=== PATIENT | female | born 1935 | race Caucasian/White ===

== ENCOUNTER 2016-08-26 12:18 | Inpatient (IN) | payer OTHER ==
[~2016-08-26] VITALS: Ht 177.8 cm; Wt 79.4 kg
[2016-08-26] MEDS ORDERED: SOD CHLORIDE 0.9% 1,000 ML IV STA ×2 (12:22)
[2016-08-26] MEDS ORDERED: AZTREONAM 1 GM/NS (PMX) 50 ML IVPB STA (12:22)
[2016-08-26] MEDS ORDERED: VANCOMYCIN 1 GM (PMX) 250 ML IVPB STA (12:22)
[2016-08-26] MEDS ORDERED: morphine 4 MG/ML VIAL IV STA (12:23)
[2016-08-26] MEDS ORDERED: ONDANSETRON 4 MG INJ IV STA ×2 (12:23→16:59)
[2016-08-26 13:03] LABS: MEAN CORPUSCULAR HGB CONC 33.3 g/dl (32.0-37.0); MEAN CORPUSCULAR VOLUME 87.3 fl (82.0-101.0); MEAN PLATELET VOLUME 8.7 fl (7.4-10.4); PLATELET COUNT 370 10^3/UL (140-440); RED BLOOD COUNT 3.77 10^6/ul (4.20-5.40); RED CELL DISTRIBUTION WIDTH 16.6 % (11.5-14.5); UNCORRECTED WBC 27.2 10^3/ul (4.8-10.8); WHITE BLOOD COUNT 27.2 10^3/ul (4.8-10.8)
[2016-08-26 13:04] LABS: CONDITION 1; LH ANALYZER COMMENTS 1; SUSPECT 1
[2016-08-26 13:05] LABS: CHLORIDE 93 mmol/L (97-110); INR 1.14; PROTIME 14.6 Sec (12.2-14.2); PT RATIO 1.1
[2016-08-26 13:06] LABS: ALBUMIN 2.9 g/dl (3.3-4.9); PARTIAL THROMBOPLASTIN TIME 50.8 Sec (25.0-35.0); SODIUM 137 mmol/L (135-144)
[2016-08-26 13:07] LABS: POTASSIUM 3.2 mmol/L (3.5-5.1)
[2016-08-26 13:09] LABS: ALANINE AMINOTRANSFERASE 51 IU/L (13-69); ALKALINE PHOSPHATASE 169 IU/L (42-121); ANION GAP 18 (8-16); ASPARTATE AMINO TRANSFERASE 87 IU/L (15-46); BILIRUBIN,INDIRECT 0.1 mg/dl (0-1.1); BILIRUBIN,TOTAL 0.1 mg/dl (0.2-1.3); BLOOD UREA NITROGEN 59 mg/dl (7-20); CARBON DIOXIDE 29 mmol/L (21-31); CREATININE 2.47 mg/dl (0.44-1.00); GLUCOSE 132 mg/dl (70-220); TOTAL PROTEIN 6.5 g/dl (6.1-8.1)
[2016-08-26 13:10] LABS: CALCIUM 9.4 mg/dl (8.4-10.2)
[2016-08-26 13:23] LABS: TROPONIN-I < 0.012 ng/ml (0.00-0.12)
--- NOTE | 2016-08-26 13:39 | RADRPT ---
PROCEDURE: XR Chest. CLINICAL INDICATION: Sepsis TECHNIQUE: Chest AP portable COMPARISON: None available FINDINGS: The mediastinal structures are unremarkable. There is calcification of the thoracic aorta (consiste nt with atherosclerosis). The heart is normal in size and configuration. The pulmonary vascularity is normal. The lung ochoa are unremarkable. No consolidation is identified. The pleural spaces are unremarkable. The osseous structures are unremarkable. IMPRESSION: Calcification of the thoracic aorta (consistent with atherosclerosis). No evidence for active cardiopulmonary disease. RPTAT: HGDB .Mike Castellanos MD, Date Time Electronically viewed and signed by .Mike Castellanos MD, on 08/26/2016 13:39 .B/
[2016-08-26] MEDS ORDERED: SIMV40TA2 PO (13:45)
[2016-08-26] MEDS ORDERED: LISI20TA11 PO (13:45)
[2016-08-26] MEDS ORDERED: HYD25 PO (13:45)
[2016-08-26] MEDS ORDERED: FER325 PO (13:46)
[2016-08-26] MEDS ORDERED: CALC0.255 PO (13:47)
[2016-08-26] MEDS ORDERED: SODI325T PO (13:48)
[2016-08-26 14:12] LABS: LYMPHOCYTES # 0.5 10^3/ul (0.8-2.9); MONOCYTE # 1.1 10^3/ul (0.3-0.9); NEUTROPHIL # 24.2 10^3/ul (1.6-7.5)
--- NOTE | 2016-08-26 14:50 | RADRPT ---
PROCEDURE: CT Abdomen and Pelvis without contrast. CLINICAL INDICATION: Abdominal pain, fever TECHNIQUE: CT of the abdomen and pelvis was performed on a multi-detector scanner without IV contr ast. Coronal and sagittal images were reformatted from the axial data set. One or more of the foll owing dose reduction techniques were used: automated exposure control, adjustment of the mA and/or kV according to patient size, use of iterative reconstruction technique. CTDI = 14.36 mGy. DLP = 84 0.19 mGy-cm. COMPARISON: None. FINDINGS: CT abdomen: The lung bases are clear. The heart size is normal, without pericardial effusion. Gallbladder is s urgically absent. Liver, biliary tree, pancreas, spleen and adrenal glands are unremarkable. There is moderate to severe bilateral hydroureteronephrosis to the level of the urinary bladder. No urol ithiasis is identified. Bilateral benign renal cysts are noted. Small hiatal hernia is present. T he stomach is otherwise grossly unremarkable. The aorta is of normal caliber. Aortic vascular calcifications are present. There is no retroperit sandhu lymphadenopathy. The robert hepatis region is clear. 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 CT pelvis: No bowel obstruction, free intraperitoneal air or abscess is identified. Colonic diverticulosis is seen, without diverticulitis. No appendicitis or colitis is identified. The uterus is surgically a bsent. Urinary bladder is moderately enlarged, concerning for urinary retention. Areas of bony erosion and poorly defined loculated fluid are seen associated with the pubic symphysi s, concerning for possible osteomyelitis and abscess formation. There is degenerative spondylosis o f the spine. IMPRESSION: 1. Areas of bony erosion are noted involving the pubic symphysis, with adjacent poorly defined, que stionably loculated fluid collections - findings are suspicious for osteomyelitis and abscess format ion. Consider contrast enhanced MRI of the pelvis for further evaluation. 2. Urinary bladder is moderately distended, concerning for urinary retention. There is moderate to severe bilateral hydroureteronephrosis to the level of the urinary bladder, without evidence of obs tructive urinary calculus, possibly indicating urinary backflow secondary to bladder distension. 3. Colonic diverticulosis is seen without diverticulitis. 4. Gallbladder is surgically absent. 5. Aortoiliac atherosclerotic calcifications are present. 6. Small hiatal hernia is noted. RPTAT: HH .Rashard Mas MD, MD Date Time Electronically viewed and signed by .Rashard Mas MD, MD on 08/26/2016 14:49 .R/
[2016-08-26] MEDS ORDERED: ONDANSETRON 4 MG INJ IV PRN ×2 (15:30→19:00)
[2016-08-26] MEDS ORDERED: ACETAMINOPHEN 325 MG TAB PO PRN ×3 (15:30→21:30)
--- NOTE | 2016-08-26 18:19 | RADRPT ---
PROCEDURE: MRI of the pelvis. CLINICAL INDICATION: Fever. Evaluate for pelvic abscess. TECHNIQUE: Multiplanar T1 and T2-weighted MRI images of the pelvis. COMPARISON: CT abdomen pelvis 08/26/2016 FINDINGS: The study is limited due to lack of intravenous contrast. There is marked irregularity of the corti sophie margins of the pubic symphysis with oral and decreased signal on T1 within the inferior and supe rior pubic rami and corresponding T2 signal hyperintensity. Complex ill-defined fluid collection with a pubic symphysis extending posteriorly into the pelvis an d anteriorly into the subcutaneous soft tissues. The intrapelvic component measuring approximately 4 x 1.4 x 1 cm and transverse, AP, craniocaudal di mensions respectively. The extra pelvic component measures approximately 3.9 x 1.7 x 1 cm in AP, t ransverse, craniocaudal dimensions respectively. These findings are most compatible with osteomyelitis with abscess and surrounding phlegmon. Bilateral hip joint effusions right greater than left no other acute intrapelvic abnormality. IMPRESSION: 1. Complex fluid collection emanating from the pubic symphysis likely representing abscess with keo rounding phlegmon as described above. Study is limited due to lack of intravenous contrast and ill- defined appearance of the fluid collection. Ultrasound correlation may be considered to assess for d rainable collection. 2. Marked irregularity of the cortical margins of the pubic symphysis , inferior, and superior pubi c rami with signal characteristics highly suggestive of osteomyelitis. Three-phase bone scan may be considered for further characterization. RPTAT:AAJJ Physician Marcin Date Time Electronically viewed and signed by Physician Marcin on 08/26/2016 18:19 JOSE MARIA/
[2016-08-26 20:03] LABS: ADD UMIC YES; URINE BILIRUBIN (Dip) NEGATIVE (NEGATIVE); URINE BLOOD (Dip) 3+ (NEGATIVE); URINE COLOR YELLOW (YELLOW); URINE GLUCOSE (Dip) NEGATIVE (NEGATIVE); URINE KETONES (Dip) NEGATIVE (NEGATIVE); URINE LEUKOCYTE ESTERASE (Dip) 3+ (NEGATIVE); URINE NITRITE (Dip) NEGATIVE (NEGATIVE); URINE TOTAL PROTEIN (Dip) 2+ (NEGATIVE); URINE UROBILINOGEN (Dip) 0.2 E.U./dL (0.1-1.0)
[2016-08-26 20:16] LABS: SQUAMOUS EPITHELIAL CELL,UR FEW
[2016-08-26 20:19] LABS: BACTERIA,URINE FEW
--- NOTE | 2016-08-26 20:50 | CONS ---
Date/Time of Note Date/Time of Note DATE: 08/26/16 TIME: 20:22 Consultation Date/Type/Reason Admit Date/Time Date of Consultation: Aug 26, 2016 Reason for Consultation Internal medicine Referring Provider: MAT SHANE MD Hx of Present Illness This is a 81-year-old female, with history of valvular carcinoma status post radical valvulectomy in 1998, over the past 5 months at least the patient has been having multiple episodes of recurrent urinary tract infection, she was diagnosed with possible pelvic abscess/mass and pelvic osteomyelitis at [facility] back in May 2016, the patient has been seen by infectious disease at [facility], she has been on multiple rounds of antibiotics including 2 courses of 6 weeks treatment of antibiotics the latest one finished approximately 3 weeks ago and did include Daptomycin. The patient has had a repeat CAT scan of her pelvis approximately 2 weeks ago and followed up with infectious disease Dr. Murillo in [place], he reviewed the CAT scan and told the patient that she failed antibiotic treatment as she still has pelvic fluid collection and signs of osteomyelitis, he requested for the patient to go [place] [facility] and be evaluated by surgery as she likely needs debridement and Dr Kenny from [facility] already evaluated the patient and recommended for her to go to a tertiary center for the procedure. The patient had a referral authorized through [facility] today However she came to the emergency department here with reported fever to 104 this morning at home, chills, episodes of nausea and vomiting 4 today, pelvic pain and urinary incontinence. Her white blood cell count is up to 27,000. I had a discussion with Dr. Karen nieves who has taken care of her at [facility] in the past, apparently she was admitted there in May with bilateral hydronephrosis requiring placement of a Agrawal catheter and the recommendation was for her to have a Agrawal catheter at all times. She was then also admitted with polymicrobial urinary tract infection that responded to Levaquin that time however she was found again to have a pelvic mass or pelvic abscess with signs of pelvic osteomyelitis that they were hoping IV antibiotics will take care of but unfortunately this has not been the case and per her infectious disease doctor Dr. Murillo from [place] the next step is a referral to [facility] for likely need for surgical debridement. I have discussed the case with Dr. Monson and from [facility] and at this point we are attempting to transfer the patient to [facility], if we cannot transfer to [facility] she will be admitted to [facility] temporarily. She was given a dose of aztreonam and I will add a dose of Levaquin, Agrawal catheter was placed, blood cultures UA urine cultures are sent. She is hemodynamically stable and may be admitted to a medical surgical bed or telemetry bed depending on availability and clinical status She had a CAT scan of the abdomen and pelvis and MRI pelvis both without contrast showing signs of pelvic osteomyelitis and fluid collection in the pelvic area consistent with phlegmon and/or abscess Review of system as per HPI, patient denies any chest pain or shortness of breath. He denies any neurological deficit, Past Medical History Hypertension History of valvular carcinoma status post radical valvulectomy and radiation therapy in 1998 Recurrent cystitis and urinary tract infection, latest episode in June 2016 with findings of pelvic abscess and pelvic osteomyelitis status post 6 weeks treatment with antibiotic regimen including daptomycin which was finished approximately 3 weeks ago Chronic kidney disease Social History Smoking Status: Never smoker Exam/Review of Systems Vital Signs Vitals Vital Signs Date Time Temp Pulse Resp B/P Pulse Ox O2 Delivery O2 Flow Rate FiO2 08/26/16 17:37 99.3 45 18 149/61 98 Room Air Results Result Diagram: 08/26/16 1230 08/26/16 1230 Results 24 hrs Laboratory Tests Test 08/26/16 12:30 08/26/16 19:29 Activated Partial Thromboplast Time 50.8 H Alanine Aminotransferase (ALT/SGPT) 51 Albumin 2.9 L Albumin/Globulin Ratio 0.80 Alkaline Phosphatase 169 H Anion Gap 18 H Aspartate Amino Transf (AST/SGOT) 87 H Band Neutrophils % 5.0 Basophils # Basophils % Blood Morphology Comment Blood Urea Nitrogen 59 H Calcium Level 9.4 Carbon Dioxide Level 29 Chloride Level 93 L Creatinine 2.47 H Differential Comment MANUAL DIFF Direct Bilirubin 0.00 Eosinophils # Eosinophils % Globulin 3.60 H Glucose Level 132 Hematocrit 33.0 L Hemoglobin 11.0 L INR International Normalized Ratio 1.14 Indirect Bilirubin 0.1 Lactic Acid Level 1.3 Lymphocytes # 0.5 L Lymphocytes % 2.0 L Mean Corpuscular Hemoglobin 29.0 Mean Corpuscular Hemoglobin Concent 33.3 Mean Corpuscular Volume 87.3 Mean Platelet Volume 8.7 Monocytes # 1.1 H Monocytes % 4.0 Neutrophils # 24.2 H Neutrophils % 89.0 H Nucleated Red Blood Cells # Nucleated Red Blood Cells % Platelet Count 370 Potassium Level 3.2 L Prothrombin Time 14.6 H Prothrombin Time Ratio 1.1 Red Blood Count 3.77 L Red Cell Distribution Width 16.6 H Sodium Level 137 Total Bilirubin 0.1 L Total Protein 6.5 Troponin I < 0.012 White Blood Count 27.2 H Urine Bacteria FEW Urine Bilirubin NEGATIVE Urine Clarity CLOUDY Urine Color YELLOW Urine Glucose NEGATIVE Urine Hemoglobin 3+ H Urine Ketones NEGATIVE Urine Leukocyte Esterase 3+ H Urine Microscopic RBC 10-25 Urine Microscopic WBC >200 Urine Nitrite NEGATIVE Urine Specific [place] 1.015 Urine Squamous Epithelial Cells FEW Urine Total Protein 2+ H Urine Urobilinogen 0.2 E.U./dL Urine pH 6.5 Medications Medications Current Medications Calcitriol (Rocaltrol) 0.25 mcg DAILY PO ; Start 08/27/16 at 09:00; Status UNV Ferrous Sulfate (Ferrous Sulfate (Ec)) 325 mg DAILY PO ; Start 08/27/16 at 09:00 Sodium Bicarbonate (Sodium Bicarbonate Tab) 325 mg BID PO ; Start 08/26/16 at 21: 00; Status UNV Atorvastatin Calcium (Lipitor) 20 mg QHS PO ; Start 08/26/16 at 21:00 DAYANNA DEVLIN Aug 26, 2016 20:50
--- NOTE | 2016-08-26 20:50 | ERA ---
ER Documentation Chief Complaint Date/Time DATE: 08/26/16 TIME: 20:46 Chief Complaint BROUGHT IN VIA EMS DUE TO FLU LIKE SYMPTOMS AND FEVER HPI Patient is a 81-year-old female with hypertension chronic UTI who presents with UTI. The patient was brought in by ambulance. She has had 3 episodes of vomiting. She had fever of 104. She called her primary doctor who told her to go to the ER. She has had a history of UTI that has been resistant and she saw an infectious disease doctor this week. She had a CT scan which showed an infection in the pelvic bone and there is concern for osteomyelitis as well. The patient's primary doctor is Dr. Moeller. ROS All systems reviewed and are negative except as per history of present illness. Medications Home Meds Reported Medications Sodium Bicarbonate* (Sodium Bicarbonate*) 325 Mg Tablet, 325 MG PO BID, TAB 08/26/16 Calcitriol* (Rocaltrol*) 0.25 Mcg Capsule, 0.25 MCG PO DAILY, CAP 08/26/16 Ferrous Sulfate* (Ferrous Sulfate*) 325 Mg Tabec, 325 MG PO DAILY, TAB 08/26/16 Simvastatin* (Zocor*) 40 Mg Tablet, 40 MG PO QHS, #30 TAB 08/26/16 Hydrochlorothiazide* (Hydrochlorothiazide*) 25 Mg Tab, 25 MG PO DAILY, #30 TAB 08/26/16 Lisinopril* (Lisinopril*) 20 Mg Tablet, 20 MG PO DAILY, #30 TAB 08/26/16 Allergies Allergies: Coded Allergies: Penicillins (Verified Allergy, Unknown, 08/26/16) sulfamethoxazole (Verified Allergy, Unknown, 08/26/16) trimethoprim (Verified Allergy, Unknown, 08/26/16) PMhx/Soc Medical and Surgical Hx: pt denies Surgical Hx History of Surgery: No Anesthesia Reaction: No Hx Neurological Disorder: No Hx Respiratory Disorders: No Hx Cardiac Disorders: Yes (htn) Hx Psychiatric Problems: No Hx Miscellaneous Medical Probl: Yes (osteomyletis, recurrent uti) Hx Alcohol Use: No Hx Substance Use: No Hx Tobacco Use: No Smoking Status: Never smoker FmHx Family History: No diabetes Physical Exam Vitals Vital Signs Date Time Temp Pulse Resp B/P Pulse Ox O2 Delivery O2 Flow Rate FiO2 08/26/16 17:37 99.3 45 18 149/61 98 Room Air 08/26/16 14:25 98.7 73 18 115/54 99 Room Air 08/26/16 12:28 99.1 53 18 112/53 96 Physical Exam Const: Mild distress Head: Atraumatic Eyes: Normal Conjunctiva ENT: Normal External Ears, Nose and Mouth. Neck: Full range of motion..~ No meningismus. Resp: Clear to auscultation bilaterally Cardio: Regular rate and rhythm, no murmurs Abd: Soft, lower abdominal pain without rebound or guarding Skin: Pale Back: No midline or flank tenderness Ext: No cyanosis, or edema Neur: Awake and alert Psych: Normal Mood and Affect Result Diagram: 08/26/16 1230 08/26/16 1230 Results 24 hrs Laboratory Tests Test 08/26/16 12:30 08/26/16 19:29 Activated Partial Thromboplast Time 50.8Sec Alanine Aminotransferase (ALT/SGPT) 51IU/L Albumin 2.9g/dl Albumin/Globulin Ratio 0.80 Alkaline Phosphatase 169IU/L Anion Gap 18 Aspartate Amino Transf (AST/SGOT) 87IU/L Band Neutrophils % 5.0% Basophils # 10^3/ul Basophils % % Blood Morphology Comment Blood Urea Nitrogen 59mg/dl Calcium Level 9.4mg/dl Carbon Dioxide Level 29mmol/L Chloride Level 93mmol/L Creatinine 2.47mg/dl Differential Comment MANUAL DIFF Direct Bilirubin 0.00mg/dl Eosinophils # 10^3/ul Eosinophils % % Globulin 3.60g/dl Glucose Level 132mg/dl Hematocrit 33.0% Hemoglobin 11.0g/dl INR International Normalized Ratio 1.14 Indirect Bilirubin 0.1mg/dl Lactic Acid Level 1.3mmol/L Lymphocytes # 0.510^3/ul Lymphocytes % 2.0% Mean Corpuscular Hemoglobin 29.0pg Mean Corpuscular Hemoglobin Concent 33.3g/dl Mean Corpuscular Volume 87.3fl Mean Platelet Volume 8.7fl Monocytes # 1.110^3/ul Monocytes % 4.0% Neutrophils # 24.210^3/ul Neutrophils % 89.0% Nucleated Red Blood Cells # 10^3/ul Nucleated Red Blood Cells % /100WBC Platelet Count 04511^3/UL Potassium Level 3.2mmol/L Prothrombin Time 14.6Sec Prothrombin Time Ratio 1.1 Red Blood Count 3.7710^6/ul Red Cell Distribution Width 16.6% Sodium Level 137mmol/L Total Bilirubin 0.1mg/dl Total Protein 6.5g/dl Troponin I < 0.012ng/ml White Blood Count 27.210^3/ul Urine Bacteria FEW Urine Bilirubin NEGATIVE Urine Clarity CLOUDY Urine Color YELLOW Urine Glucose NEGATIVE% Urine Hemoglobin 3+ Urine Ketones NEGATIVE Urine Leukocyte Esterase 3+ Urine Microscopic RBC 10-25/HPF Urine Microscopic WBC >200/HPF Urine Nitrite NEGATIVE Urine Specific [place] 1.015 Urine Squamous Epithelial Cells FEW Urine Total Protein 2+ Urine Urobilinogen 0.2 E.U./dL Urine pH 6.5 Current Medications Medications (Trade) Dose Ordered Sig/Dani Route PRN Reason Start Time Stop Time Status Last Admin Dose Admin Vancomycin HCl 250 ml @ 125 mls/hr ONCE STAT IVPB 08/26/16 12:22 08/26/16 14:21 DC 08/26/16 13:27 Aztreonam 50 ml @ 100 mls/hr ONCE STAT IVPB 08/26/16 12:22 08/26/16 12:51 DC 08/26/16 13:01 Sodium Chloride 1,000 ml @ 1,000 mls/hr Q1H STAT IV 08/26/16 12:22 08/26/16 13:21 DC 08/26/16 12:52 Sodium Chloride (NS) 1,000 ml @ 1,000 mls/hr Q1H STAT IV 08/26/16 12:22 08/26/16 13:21 DC 08/26/16 12:52 Morphine Sulfate (morphine) 4 mg ONCE STAT IV 08/26/16 12:23 08/26/16 12:25 DC 08/26/16 12:53 Ondansetron HCl (Zofran Inj) 4 mg ONCE STAT IV 08/26/16 12:23 08/26/16 12:25 DC 08/26/16 12:52 Ondansetron HCl (Zofran Inj) 4 mg BRIDGE ORDER PRN IV NAUSEA AND/OR VOMITING 08/26/16 15:30 08/27/16 15:29 Acetaminophen (Tylenol Tab) 650 mg ER BRIDGE PRN PO MILD PAIN/FEVER 08/26/16 15:30 08/27/16 15:29 Calcitriol (Rocaltrol) 0.25 mcg DAILY PO 08/27/16 09:00 UNV Ferrous Sulfate (Ferrous Sulfate (Ec)) 325 mg DAILY PO 08/27/16 09:00 Sodium Bicarbonate (Sodium Bicarbonate Tab) 325 mg BID PO 08/26/16 21:00 UNV Atorvastatin Calcium (Lipitor) 20 mg QHS PO 08/26/16 21:00 Ondansetron HCl (Zofran Inj) 4 mg ONCE STAT IV 08/26/16 16:59 08/26/16 17:00 DC 08/26/16 17:47 Ondansetron HCl (Zofran Inj) 4 mg BRIDGE ORDER PRN IV NAUSEA AND/OR VOMITING 08/26/16 19:00 08/27/16 18:59 Acetaminophen 650 mg 650 mg ER BRIDGE PRN PO MILD PAIN/FEVER 08/26/16 19:00 08/27/16 18:59 Levofloxacin/ Dextrose (Levaquin 750 Mg/ D5W 150 ml (Pmx)) 150 ml @ 100 mls/hr ONCE ONCE IVPB 08/26/16 20:30 08/26/16 21:59 UNV Procedures/MDM CT scan shows possible osteomyelitis of the pelvis per radiology. Chest x-ray shows no pneumonia per radiology. EKG read by me: Rate/Rhythm: Regular rate and rhythm at a rate of 79 Intervals: Normal Impression: No evidence of ischemia with PVCs Admit MDM: Patient's infectious symptoms have not stabilized and the patient is at risk of rapid decompensation. The patient will be admitted for careful hydration, antibiotic therapy, and infectious source control. Severe Sepsis criteria: Infectious source: Cystitis End organ damage indicated by: Creatinine greater than 2 Sepsis Management: Time of recognition of sepsis: 19:29 Within 3 hours of recognition: Blood cultures x 2 before broad-spectrum antibiotics: Yes 30 ml/kg NS bolus Completed Initial lactate 1.3 Repeat lactate pending Time of recognition of septic shock: No septic shock Septic Shock Assessment: Any lactic acid > 4.0 No Persistent hypotension (SBP < 90 or 40 mmHg drop, MAP < 65) despite 30 mL/kg IV fluid bolus No Volume Re-assessment for Septic Shock (post 30 ml/kg bolus): No septic shock at this time Persistent Hypotension Treatment: Comfort care No Central line Not Required Vasopressor started Not required I considered further perfusion assessment with CVP measurement, SCVO2, bedside ultrasound volume assessment, passive leg raise, trial of further fluid bolus. And proceeded with 30 ml/kg fluid bolus of NSS, broad spectrum antibiotics, and admission. Dr. Sanchez came to the bedside to see the patient. This patient is complicated given her pelvic osteomyelitis as well as cystitis and therefore may require transfer. Dr. Sanchez is trying to arrange transfer to [facility] at this time. If the patient is not accepted at [facility] the patient will be admitted to [facility] for further IV antibiotics. Accepting Care Team Current data and ongoing care discussed. Admitting Physician: Dr. Sanchez Import/Export Administrator(s): None Outstanding Data: Culture results and repeat lactic acid Critical Care: Critical care time 45 minutes excluding all billable procedures Emergent fluid management while maintaining close respiratory support. Provision of immediate and broad-spectrum antibiotic therapy. Simultaneous assessment for possible sources in order to direct targeted therapy. Consideration for invasive and chemical support to prevent cardiopulmonary collapse. Departure Diagnosis: Primary Impression: Severe sepsis Additional Impressions: Cystitis Osteomyelitis Qualified Code: M86.18 - Acute osteomyelitis of other site Leukocytosis Qualified Code: D72.829 - Leukocytosis, unspecified type Renal failure Anemia Qualified Code: D64.9 - Anemia, unspecified type Hypokalemia Condition: Serious MAT SHANE MD Aug 26, 2016 20:50
--- NOTE | 2016-08-26 20:58 | HP ---
Date/Time of Note Date/Time of Note DATE: 08/26/16 TIME: 20:50 Assessment/Plan VTE Prophylaxis VTE Prophylaxis Intervention: SCD's Lines/Catheters Urinary Cath still in place: Yes Reason Cath still needed: urinary retention, other (indicate) (Acute kidney injury) Assessment/Plan Assessment/Plan 81-year-old female with: 1. Cystitis, rule out bacteremia given the fact that the patient was admitted with chills, fever at home, significant leukocytosis. Blood cultures have been drawn and pending, UA is positive, urine culture is pending. Based on history of polymicrobial gram-negative radha infection previously at [facility], sensitive to Levaquin and the fact that the patient has penicillin allergy, she was given a dose of aztreonam and I will double cover her with Levaquin. 2. 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 Murillo. Therefore the question is if these findings are actually infectious versus signs of malignancy. Given her presentation today, there is great concern for possible underlying infection. Monitor white blood cell count and continue current antibiotics, depending on clinical course, she may need transfer to a tertiary level of care. If she does improve with treatment of UTI/cystitis then she may need some sort of biopsy versus surgical debridement sooner rather than later in order to get a final diagnosis and treatment plan regarding the pelvic findings. ESR pending 3. Hypertension, currently her blood pressure is stable and I will hold off of any antihypertensive unless absolutely needed due to the concerns for possible severe infection 4. Acute kidney injury with reported chronic kidney disease, signs of obstructive uropathy with bilateral hydronephrosis, Agrawal catheter has been placed to decompress the bladder, monitor renal function and she may need a repeat ultrasound of the pelvis or the kidneys to make sure that her hydronephrosis is resolved. Patient reports that she is followed by Dr. Kelly for nephrology, apparently at [facility] based on the records her renal function was normal in June 2016. Replete potassium Prophylaxis: SCDs for DVT prophylaxis, Pepcid for GI prophylaxis and probiotics Disposition: Admit to medical surgical bed and depending on clinical course she may need a transfer to tertiary level of care. HPI/ROS Admit Date/Time Admit Date/Time Hx of Present Illness This is a 81-year-old female, with history of valvular carcinoma status post radical valvulectomy in 1998, over the past 5 months at least the patient has been having multiple episodes of recurrent urinary tract infection, she was diagnosed with possible pelvic abscess/mass and pelvic osteomyelitis at [facility] back in May 2016, the patient has been seen by infectious disease at [facility], she has been on multiple rounds of antibiotics including 2 courses of 6 weeks treatment of antibiotics the latest one finished approximately 3 weeks ago and did include Daptomycin. The patient has had a repeat CAT scan of her pelvis approximately 2 weeks ago and followed up with infectious disease Dr. Murillo in [place], he reviewed the CAT scan and told the patient that she failed antibiotic treatment as she still has pelvic fluid collection and signs of osteomyelitis, he requested for the patient to go to [facility] and be evaluated by surgery as she likely needs debridement and Dr Kenny from [facility] already evaluated the patient and recommended for her to go to a tertiary center for the procedure. The patient had a referral authorized through [facility] today However she came to the emergency department here with reported fever to 104 this morning at home, chills, episodes of nausea and vomiting 4 today, pelvic pain and urinary incontinence. Her white blood cell count is up to 27,000. I had a discussion with Dr. Karen nieves who has taken care of her at [facility] in [place] in the past, apparently she was admitted there in May with bilateral hydronephrosis requiring placement of a Agrawal catheter and the recommendation was for her to have a Agrawal catheter at all times. She was then also admitted with polymicrobial urinary tract infection that responded to Levaquin that time however she was found again to have a pelvic mass or pelvic abscess with signs of pelvic osteomyelitis that they were hoping IV antibiotics will take care of but unfortunately this has not been the case and per her infectious disease doctor Dr. Murillo from [place] the next step is a referral to [facility] for likely need for surgical debridement. I have discussed the case with Dr. Monson and from [place] and at this point we are attempting to transfer the patient to [facility], if we cannot transfer to [facility] she will be admitted to [facility] temporarily. She was given a dose of aztreonam and I will add a dose of Levaquin, Agrawal catheter was placed, blood cultures UA urine cultures are sent. She is hemodynamically stable and being admitted to a medical surgical bed She had a CAT scan of the abdomen and pelvis and MRI pelvis both without contrast showing signs of pelvic osteomyelitis and fluid collection in the pelvic area consistent with phlegmon and/or abscess ROS Review of system as per HPI, Patient denies any chest pain or shortness of breath. 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 Recurrent cystitis and urinary tract infection, latest episode in June 2016 with findings of pelvic abscess and pelvic osteomyelitis status post 6 weeks treatment with antibiotic regimen including daptomycin which was finished approximately 3 weeks ago Chronic kidney disease and chronic urinary incontinence may be Agrawal dependent Past Surgical History Status post cholecystectomy 1974 Status post hysterectomy 1975 Status post radical vulvectomy in 1998 Social History Alcohol Use: none Smoking Status: Never smoker Exam/Review of Systems Vital Signs Vitals Vital Signs Date Time Temp Pulse Resp B/P Pulse Ox O2 Delivery O2 Flow Rate FiO2 08/26/16 17:37 99.3 45 18 149/61 98 Room Air Exam Constitutional: alert, frail, oriented, other (Currently having chills) Eyes: EOMI, nl conjunctiva ENMT: mucosa pink and moist, nl external ears & nose, nl lips & teeth, nl nasal mucosa & septum Neck: non-tender, supple Respiratory: clear to auscultation, normal air movement Cardiovascular: nl pulses, regular rate and rhythm Gastrointestinal: soft Genitourinary - Male: other Genitourinary - Female: other (The patient does have hardening of her subcutaneous area in her lower pelvis and perineal area which is the area where she had radiation for her vulvular cancer) Extremities: normal pulses, other (No edema, clubbing or cyanosis) Neurological: [employer] II-XII intact, lethargic, nl mental status, nl speech, other (Generalized weakness) Additional Comments A pediatric size Agrawal catheter has been placed, urine analysis and urine cultures are pending Labs Result Diagram: 08/26/16 1230 08/26/16 1230 Medications Medications Current Medications Calcitriol (Rocaltrol) 0.25 mcg DAILY PO ; Start 08/27/16 at 09:00; Status UNV Ferrous Sulfate (Ferrous Sulfate (Ec)) 325 mg DAILY PO ; Start 08/27/16 at 09:00 Sodium Bicarbonate (Sodium Bicarbonate Tab) 325 mg BID PO ; Start 08/26/16 at 21: 00; Status UNV Atorvastatin Calcium (Lipitor) 20 mg QHS PO ; Start 08/26/16 at 21:00 Procedures Procedures PROCEDURE: XR Chest. CLINICAL INDICATION: Sepsis TECHNIQUE: Chest AP portable COMPARISON: None available FINDINGS: The mediastinal structures are unremarkable. There is calcification of the thoracic aorta (consistent with atherosclerosis). The heart is normal in size and configuration. The pulmonary vascularity is normal. The lung ochoa are unremarkable. No consolidation is identified. The pleural spaces are unremarkable. The osseous structures are unremarkable. IMPRESSION: Calcification of the thoracic aorta (consistent with atherosclerosis). No evidence for active cardiopulmonary disease. RPTAT: HGDB .Mike Castellanos MD, MD Date Time Electronically viewed and signed by .Mike Castellanos MD, MD on 08/26/2016 13:39 PROCEDURE: CT Abdomen and Pelvis without contrast. CLINICAL INDICATION: Abdominal pain, fever TECHNIQUE: CT of the abdomen and pelvis was performed on a multi-detector scanner without IV contrast. Coronal and sagittal images were reformatted from the axial data set. One or more of the following dose reduction techniques were used: automated exposure control, adjustment of the mA and/or kV according to patient size, use of iterative reconstruction technique. CTDI = 14.36 mGy. DLP = 840.19 mGy-cm. COMPARISON: None. FINDINGS: CT abdomen: The lung bases are clear. The heart size is normal, without pericardial effusion. Gallbladder is surgically absent. Liver, biliary tree, pancreas, spleen and adrenal glands are unremarkable. There is moderate to severe bilateral hydroureteronephrosis to the level of the urinary bladder. No urolithiasis is identified. Bilateral benign renal cysts are noted. Small hiatal hernia is present. The stomach is otherwise grossly unremarkable. The aorta is of normal caliber. Aortic vascular calcifications are present. There is no retroperitoneal lymphadenopathy. The robert hepatis region is clear. 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 CT pelvis: No bowel obstruction, free intraperitoneal air or abscess is identified. Colonic diverticulosis is seen, without diverticulitis. No appendicitis or colitis is identified. The uterus is surgically absent. Urinary bladder is moderately enlarged, concerning for urinary retention. Areas of bony erosion and poorly defined loculated fluid are seen associated with the pubic symphysis, concerning for possible osteomyelitis and abscess formation. There is degenerative spondylosis of the spine. IMPRESSION: 1. Areas of bony erosion are noted involving the pubic symphysis, with adjacent poorly defined, questionably loculated fluid collections - findings are suspicious for osteomyelitis and abscess formation. Consider contrast enhanced MRI of the pelvis for further evaluation. 2. Urinary bladder is moderately distended, concerning for urinary retention. There is moderate to severe bilateral hydroureteronephrosis to the level of the urinary bladder, without evidence of obstructive urinary calculus, possibly indicating urinary backflow secondary to bladder distension. 3. Colonic diverticulosis is seen without diverticulitis. 4. Gallbladder is surgically absent. 5. Aortoiliac atherosclerotic calcifications are present. 6. Small hiatal hernia is noted. RPTAT: HH .Rashard Mas MD, MD Date Time Electronically viewed and signed by .Rashard Mas MD, MD on 08/26/2016 14: 49 .R/ CC: MAT SHANE MD PROCEDURE: MRI of the pelvis. CLINICAL INDICATION: Fever. Evaluate for pelvic abscess. TECHNIQUE: Multiplanar T1 and T2-weighted MRI images of the pelvis. COMPARISON: CT abdomen pelvis 08/26/2016 FINDINGS: The study is limited due to lack of intravenous contrast. There is marked irregularity of the cortical margins of the pubic symphysis with oral and decreased signal on T1 within the inferior and superior pubic rami and corresponding T2 signal hyperintensity. Complex ill-defined fluid collection with a pubic symphysis extending posteriorly into the pelvis and anteriorly into the subcutaneous soft tissues. The intrapelvic component measuring approximately 4 x 1.4 x 1 cm and transverse , AP, craniocaudal dimensions respectively. The extra pelvic component measures approximately 3.9 x 1.7 x 1 cm in AP, transverse, craniocaudal dimensions respectively. These findings are most compatible with osteomyelitis with abscess and surrounding phlegmon. Bilateral hip joint effusions right greater than left no other acute intrapelvic abnormality. IMPRESSION: 1. Complex fluid collection emanating from the pubic symphysis likely representing abscess with surrounding phlegmon as described above. Study is limited due to lack of intravenous contrast and ill-defined appearance of the fluid collection. Ultrasound correlation may be considered to assess for drainable collection. 2. Marked irregularity of the cortical margins of the pubic symphysis , inferior, and superior pubic rami with signal characteristics highly suggestive of osteomyelitis. Three-phase bone scan may be considered for further characterization. RPTAT:AAJJ Physician Marcin Date Time Electronically viewed and signed by Physician Marcin on 08/26/2016 18:19 JOSE MARIA/ CC: MAT SHANE MDNNILESH F Aug 26, 2016 20:58
[2016-08-26 21:30] VITALS: TEMP 100.3
[2016-08-26] MEDS ORDERED: DOCUSATE SODIUM 100 MG CAP PO PRN (21:30)
[2016-08-26] MEDS ORDERED: NACL 0.9% 3 ML SYG IV SCH (21:30)
[2016-08-26] MEDS ORDERED: MAGNESIUM HYDROXIDE 30ML CUP PO PRN (21:30)
[2016-08-26] MEDS ORDERED: BISACODYL 10 MG SUPP PR PRN (21:30)
[2016-08-26] MEDS ORDERED: HYDROCODONE/APAP (5/325) TAB PO PRN ×2 (21:30)
[2016-08-26] MEDS ORDERED: LEVOFLOXACIN 750MG/D5W (PMX) 150 ML IVPB ONE (22:00)
[2016-08-26 22:18] VITALS: BP 120/56; RESP 18
[2016-08-26 22:26] VITALS: Ht 177.8 cm; Wt 79.4 kg
[2016-08-26] MEDS: ATORVASTATIN 20 MG TAB PO SCH (23:06)
[2016-08-26] MEDS: SOD CHLORIDE 0.9% 1,000 ML IV SCH (23:07)
[2016-08-26] MEDS: NA BICARBONATE 650 MG TAB PO SCH (23:07)
[2016-08-27] MEDS: SOD CHLORIDE 0.9% 1,000 ML IV SCH ×3 (07:21→23:08)
[2016-08-27 07:40] VITALS: BP 130/55; RESP 18
[2016-08-27 08:25] LABS: ALBUMIN 2.5 g/dl (3.3-4.9)
[2016-08-27 08:26] LABS: POTASSIUM 3.1 mmol/L (3.5-5.1)
[2016-08-27 08:28] LABS: CREATININE 1.94 mg/dl (0.44-1.00)
[2016-08-27 08:29] LABS: ALBUMIN/GLOBULIN RATIO 0.8; CALCIUM 8.4 mg/dl (8.4-10.2); PHOSPHORUS 3.5 mg/dl (2.5-4.9); TOTAL PROTEIN 5.6 g/dl (6.1-8.1)
[2016-08-27 08:30] LABS: MAGNESIUM 1.3 mg/dl (1.7-2.5)
[2016-08-27] MEDS ORDERED: AZTREONAM 2 GM in SOD CHLORIDE 0.9% 100 ML IVPB ONE (09:00)
[2016-08-27] MEDS: ONDANSETRON 4 MG INJ IV PRN (09:33)
[2016-08-27] MEDS: FAMOTIDINE 20 MG TAB PO SCH (09:34)
[2016-08-27] MEDS: NA BICARBONATE 650 MG TAB PO SCH ×2 (09:34→20:18)
[2016-08-27] MEDS: CALCITRIOL 0.25 MCG CAP PO SCH (09:35)
[2016-08-27] MEDS: FERROUS SULFATE (EC) 325 MG TAB PO SCH (09:35)
[2016-08-27 10:27] LABS: HEMATOCRIT 27.5 % (37.0-47.0); HEMOGLOBIN 8.8 g/dl (12.0-16.0); MEAN CORPUSCULAR HEMOGLOBIN 29.2 pg (29.0-33.0); MEAN CORPUSCULAR VOLUME 91.4 fl (82.0-101.0); RED BLOOD COUNT 3.01 10^6/ul (4.20-5.40); WHITE BLOOD COUNT 23.4 10^3/ul (4.8-10.8)
[2016-08-27 10:28] LABS: BASOPHILS % 0.2 % (0.0-2.0); EOSINOPHILS # 0.1 10^3/ul (0.0-0.5); EOSINOPHILS % 0.2 % (0.0-7.0); LYMPHOCYTES # 0.6 10^3/ul (0.8-2.9); LYMPHOCYTES % 2.4 % (15.0-51.0); MEAN PLATELET VOLUME 10.9 fl (7.4-10.4); MONOCYTE # 1.2 10^3/ul (0.3-0.9); MONOCYTES % 5.3 % (0.0-11.0); NEUTROPHIL # 21.3 10^3/ul (1.6-7.5); NUCLEATED RED BLOOD CELLS% 0.1 /100WBC (0.0-0.0); PLATELET COUNT 306 10^3/UL (140-440); RED CELL DISTRIBUTION WIDTH 15.9 % (11.5-14.5)
--- NOTE | 2016-08-27 16:51 | PDOCDIS ---
Discharge Instructions DIAGNOSIS Discharge Diagnosis: Pelvic osteomyelitis, sepsis (GPC, GNR), pelvic abscess CONDITION Patient Condition: Serious HOME CARE INSTRUCTIONS: Diet Instructions: Special Diet: RENAL DIET ACTIVITY: Activity Restrictions: No Weight Bearing FOLLOW UP/APPOINTMENTS Appointments Patient accepted for transfer to [facility], by DARIN Farmer M.D. Aug 27, 2016 16:51
--- NOTE | 2016-08-27 16:54 | DS ---
Date/Time of Note Date/Time of Note DATE: 08/27/16 TIME: 16:53 Discharge Summary Admission/Discharge Info Admit Date/Time Aug 26, 2016 at 18:43 Discharge Date/Time Aug 27, 2016 Final Diagnosis Pelvic osteomyelitis, pelvic abscess, sepsis (GPC, GNR), renal insufficiency Patient Condition: Serious Consults None Procedures 1. Abd/pelvic CT 2. Pelvic MRI 3. Blood cultures Hx of Present Illness 81-year-old patient of Dr. Shaun Moeller with a history of vulval carcinoma status post radical vulvectomy in 1998. Over the past 5 months she has had multiple episodes of urinary tract infection and was diagnosed with possible pelvic abscess/mass and pelvic osteomyelitis at [facility] in May 2016. She was evaluated by Dr. Murillo, from the Infectious Disease Service at [facility], and has been treated with multiple rounds of antibiotics including two courses of treatment for six weeks, most recently concluding a course of daptomycin three weeks ago. CT of the pelvis 2 weeks ago, and Dr. Murillo recommended referral to [facility] for possible surgical debridement. She presented yesterday to the [facility] ER with fever to 104, chills, episodes of nausea and vomiting 4, pelvic pain and urinary incontinence. Hospital Course Her white blood cell count was 27,000, and preliminary blood culture results demonstrated Gram-positive cocci in clusters and Gram-negative rods. She has a penicillin allergy, and was started on aztreonam. In consultation with Dr. Kenya Jones at [facility], it was determined that [facility] did not have the level of surgical or interventional radiology care required to address her problems. She underwent CT scan of the abdomen and pelvis and MRI of the pelvis, both without contrast, showing signs of pelvic osteomyelitis and fluid collection in the pelvic area consistent with phlegmon and/or abscess. The patient still had considerable pelvic area pain today, but felt less ill since starting on intravenous antibiotics. She pointed to a suprapubic area above the inguinal ligaments bilaterally, with greater tenderness on the right. No appetite, but also no headache, dyspnea, or chest pain. Agrawal catheter in place. On physical exam, she had reassuringly normal cardiac, pulmonary and neurologic exams. Dry mouth. Normal pupils. No JVD. There was mild pretibial edema bilaterally. She had mild abdominal tenderness, without rebound or guarding. Blood tests today were improved with WBC 23k/ul, creatinine down to 1.94 (from 2.47). ESR was 130mm/hr, consistent with osteomyelitis and sepsis. Arrangements were made today for transfer to [facility]. I discussed the case with Dr. Karlos Winters, the accepting physician. She indicated that her discussions with several surgeons had brought into question whether surgical intervention was indicated. But I think that this patient would benefit from direct surgical consultation and evaluation for possible benefit of debridement vs. interventional radiology accessing the fluid collection in the pelvis for possible culture and improved antibiotic therapy. Home Meds Reported Medications Sodium Bicarbonate* (Sodium Bicarbonate*) 325 Mg Tablet, 325 MG PO BID, TAB 08/26/16 Calcitriol* (Rocaltrol*) 0.25 Mcg Capsule, 0.25 MCG PO DAILY, CAP 08/26/16 Ferrous Sulfate* (Ferrous Sulfate*) 325 Mg Tabec, 325 MG PO DAILY, TAB 08/26/16 Simvastatin* (Zocor*) 40 Mg Tablet, 40 MG PO QHS, #30 TAB 08/26/16 Hydrochlorothiazide* (Hydrochlorothiazide*) 25 Mg Tab, 25 MG PO DAILY, #30 TAB 08/26/16 Lisinopril* (Lisinopril*) 20 Mg Tablet, 20 MG PO DAILY, #30 TAB 08/26/16 Follow-up Plan Transfer to Internal Medicine, [facility], Dr. Winters. Pending Labs Laboratory Tests Test 08/26/16 19:29 08/26/16 22:42 08/27/16 01:52 08/27/16 07:10 Urine Bacteria FEW Urine Bilirubin NEGATIVE (NEGATIVE) Urine Clarity CLOUDY (CLEAR) Urine Color YELLOW (YELLOW) Urine Glucose NEGATIVE% (NEGATIVE) Urine Hemoglobin 3+ (NEGATIVE) Urine Ketones NEGATIVE (NEGATIVE) Urine Leukocyte Esterase 3+ (NEGATIVE) Urine Microscopic RBC 10-25/HPF (0) Urine Microscopic WBC >200/HPF (0) Urine Nitrite NEGATIVE (NEGATIVE) Urine Specific [place] 1.015 (1.003-1.030) Urine Squamous Epithelial Cells FEW Urine Total Protein 2+ (NEGATIVE) Urine Urobilinogen 0.2 E.U./dL (0.1-1.0) Urine pH 6.5 (5.0-9.0) Erythrocyte Sedimentation Rate 130mm/Hr (0-30) Lactic Acid Level 1.1mmol/L (0.5-2.2) 0.8mmol/L (0.5-2.2) Alanine Aminotransferase (ALT/SGPT) 37IU/L (13-69) Albumin 2.5g/dl (3.3-4.9) Albumin/Globulin Ratio 0.80 Alkaline Phosphatase 160IU/L (42-121) Anion Gap 16 (8-16) Aspartate Amino Transf (AST/SGOT) 43IU/L (15-46) Basophils # 0.010^3/ul (0.0-0.1) Basophils % 0.2% (0.0-2.0) Blood Urea Nitrogen 54mg/dl (7-20) Calcium Level 8.4mg/dl (8.4-10.2) Carbon Dioxide Level 29mmol/L (21-31) Chloride Level 96mmol/L (97-110) Creatinine 1.94mg/dl (0.44-1.00) Direct Bilirubin 0.00mg/dl (0.00-0.20) Eosinophils # 0.110^3/ul (0.0-0.5) Eosinophils % 0.2% (0.0-7.0) Globulin 3.10g/dl (1.3-3.2) Glucose Level 89mg/dl (70-220) Hematocrit 27.5% (37.0-47.0) Hemoglobin 8.8g/dl (12.0-16.0) Indirect Bilirubin 0.0mg/dl (0-1.1) Lymphocytes # 0.610^3/ul (0.8-2.9) Lymphocytes % 2.4% (15.0-51.0) Magnesium Level 1.3mg/dl (1.7-2.5) Mean Corpuscular Hemoglobin 29.2pg (29.0-33.0) Mean Corpuscular Hemoglobin Concent 32.0g/dl (32.0-37.0) Mean Corpuscular Volume 91.4fl (82.0-101.0) Mean Platelet Volume 10.9fl (7.4-10.4) Monocytes # 1.210^3/ul (0.3-0.9) Monocytes % 5.3% (0.0-11.0) Neutrophils # 21.310^3/ul (1.6-7.5) Neutrophils % 91.0% (39.0-77.0) Nucleated Red Blood Cells # 0.010^3/ul (0.0-0.0) Nucleated Red Blood Cells % 0.1/100WBC (0.0-0.0) Phosphorus Level 3.5mg/dl (2.5-4.9) Platelet Count 60665^3/UL (140-440) Potassium Level 3.1mmol/L (3.5-5.1) Red Blood Count 3.0110^6/ul (4.20-5.40) Red Cell Distribution Width 15.9% (11.5-14.5) Sodium Level 138mmol/L (135-144) Total Bilirubin 0.0mg/dl (0.2-1.3) Total Protein 5.6g/dl (6.1-8.1) White Blood Count 23.410^3/ul (4.8-10.8) Microbiology Date/Time Source Procedure Growth Status 08/26/16 19:29 Catheter Urine Urine Culture - Preliminary Mixed Gram Negative Organisms Resulted Copies To: CC: DAYANNA DEVLIN JOHN P. M.D. Aug 27, 2016 16:54
[2016-08-27] MEDS ORDERED: AZTR1VIA2 IV (18:22)
[2016-08-27 19:00] VITALS: BP 130/53; RESP 19
[2016-08-27] MEDS: ATORVASTATIN 20 MG TAB PO SCH (20:18)
[2016-08-27] MEDS: AZTREONAM 1 GM/NS (PMX) 50 ML IVPB SCH (20:19)
[2016-08-28] MEDS: SOD CHLORIDE 0.9% 1,000 ML IV SCH ×3 (03:21→19:55)
[2016-08-28 08:13] VITALS: BP 128/58; RESP 18
[2016-08-28 08:16] VITALS: BP 178/97; RESP 20
[2016-08-28] MEDS: FAMOTIDINE 20 MG TAB PO SCH (09:03)
[2016-08-28] MEDS: AZTREONAM 1 GM/NS (PMX) 50 ML IVPB SCH ×2 (09:03→21:59)
[2016-08-28] MEDS: FERROUS SULFATE (EC) 325 MG TAB PO SCH (09:04)
[2016-08-28] MEDS: NA BICARBONATE 650 MG TAB PO SCH ×2 (09:04→22:00)
[2016-08-28] MEDS: CALCITRIOL 0.25 MCG CAP PO SCH (09:04)
--- NOTE | 2016-08-28 17:17 | CONS ---
DATE OF ADMISSION: 08/26/2016 DATE OF CONSULTATION: 08/27/2016 TYPE OF CONSULTATION: Infectious disease. REASON FOR CONSULTATION: Antibiotic management. HISTORY OF PRESENT ILLNESS: Latisha Collins is a 81-year-old female who comes in with urinary retentio n and is being seen for antibiotic management. PAST PROBLEMS INCLUDE: 1. Vulva carcinoma status post radical vulvectomy in 1998. Over the last 5 months, the patient has had multiple problems with recurrent urinary tract infections. She was diagnosed with possible pel herman abscess/mass and pelvic osteomyelitis at [facility] in May 2016. She h as been on multiple antibiotics including 2 courses of 6 weeks of treatment with antibiotics, latest one finished 3 weeks ago and included daptomycin. Repeat CT scan of her pelvis 2 weeks ago was gisselle mckeon, was seen by Dr. Murillo, infectious disease in [place], told she failed antibiotic treatment that she had a pelvic fluid collection and signs of osteomyelitis. He requested the patient go to [facility] __ ___ to be evaluated by surgery. She likely needs debridement and recommended tertiary care. The rosalba hernandez had a referral authorized to [facility] today; however she came to the emergency room with a temperature of 104 degrees, fever, chills, nausea, vomiting, pelvic pain and urinary incontin ence with a white count of 27,000. She had bilateral hydronephrosis in May requiring placement of Agrawal catheter and recommendations that it be in at all times. She was then admitted for pyelom icrobial urinary tract infection that responding to Levaquin. She had a pelvic mass or abscess. At tempting to transfer the patient to [facility], if not in the meantime, we will admit her to [facility]. She was given a dose of Levaquin and Zosyn. Agrawal catheter was replaced. Blood cultures we re done and she is hemodynamically stable. CAT scan of the abdomen and pelvis, MRI shows fluid kalpana ection and osteomyelitis of the pelvic area. PAST MEDICAL HISTORY: 1. Hypertension. 2. Vulvar carcinoma status post radical vulvectomy and radiation therapy in 1998. 3. Recurrent cystitis and urinary tract infections. 4. Chronic renal disease, chronic urinary incontinence. 5. Status post cholecystectomy. 6. Status post hysterectomy. 7. Status post lobectomy. FAMILY HISTORY: Noncontributory. SOCIAL HISTORY: Does not smoke, drink or abuse drugs. ALLERGIES: NONE TO PENICILLIN, SULFA OR FOODS. MEDICATIONS: Per chart. REVIEW OF SYSTEMS: As per HPI. PHYSICAL EXAMINATION: GENERAL: The patient is a frail female who has fever and chills. VITAL SIGNS: Temperature 99.3, but she had a T-max of 104. SKIN: Without generalized rash. HEENT: Within normal limits. NECK: Supple. LYMPH NODES: None palpable. CHEST: Decreased breath sounds at the bases. HEART: Without murmur or gallop. ABDOMEN: Soft, nontender, without organosplenomegaly or masses. EXTREMITIES: Without cyanosis, clubbing, or edema. RECTAL AND GENITAL: Deferred. NEUROLOGIC: No focal neurological abnormality. With regards to the genital area, she has hardening of the subcutaneous area in the lower pelvis and perineal area where she had her vulvar radiation. LABS: Her white count on admission was 27.2, H and H 11 and 33, platelet count 370,000. BUN and cr eatinine 59/2.747, platelet count 132,000. Glucose 132. Chest x-ray shows no evidence for acute ca rdiopulmonary disease. CT scan of the abdomen and pelvis is as outlined. Patient was begun on I believe Levaquin and aztreonam. She needs transfer to a tertiary care [facility]. I will dictate my findings Dr. Sanchez and also to Dr. Perkins. Dictated By: MATT CORTEZ MD, JD/SHREYA Conf#: [id number] DID#: [id number]
[2016-08-28 19:52] VITALS: BP 121/60; RESP 18
[2016-08-28] MEDS: ATORVASTATIN 20 MG TAB PO SCH (22:00)
--- NOTE | 2016-08-28 23:35 | PN ---
Date/Time of Note Date/Time of Note DATE: 08/28/16 TIME: 23:30 Assessment/Plan VTE Prophylaxis VTE Prophylaxis Intervention: SCD's Lines/Catheters IV Catheter Type (from Nrs): Peripheral IV Urinary Cath still in place: Yes Reason Cath still needed: urinary retention, other (indicate) Assessment/Plan Chief Complaint/Hosp Course Her white blood cell count was 27,000, and preliminary blood culture results demonstrated Gram-positive cocci in clusters and Gram-negative rods. She has a penicillin allergy, and was started on aztreonam. In consultation with Dr. Kenya Jones at [facility], it was determined that [facility] did not have the level of surgical or interventional radiology care required to address her problems. She underwent CT scan of the abdomen and pelvis and MRI of the pelvis, both without contrast, showing signs of pelvic osteomyelitis and fluid collection in the pelvic area consistent with phlegmon and/or abscess. The patient still had considerable pelvic area pain today, but felt less ill since starting on intravenous antibiotics. She pointed to a suprapubic area above the inguinal ligaments bilaterally, with greater tenderness on the right. No appetite, but also no headache, dyspnea, or chest pain. Agrawal catheter in place. On physical exam, she had reassuringly normal cardiac, pulmonary and neurologic exams. Dry mouth. Normal pupils. No JVD. There was mild pretibial edema bilaterally. She had mild abdominal tenderness, without rebound or guarding. Blood tests today were improved with WBC 23k/ul, creatinine down to 1.94 (from 2.47). ESR was 130mm/hr, consistent with osteomyelitis and sepsis. Arrangements were made today for transfer to [facility]. I discussed the case with Dr. Karlos Winters, the accepting physician. She indicated that her discussions with several surgeons had brought into question whether surgical intervention was indicated. But I think that this patient would benefit from direct surgical consultation and evaluation for possible benefit of debridement vs. interventional radiology accessing the fluid collection in the pelvis for possible culture and improved antibiotic therapy. Problems: Assessment/Plan [facility] 1. 81-year-old woman with chronic pelvic osteomyelitis and fluid collection consistent with phlegmon and/or abscess on MRI two days ago. Definitely better on IV aztreonam. Blood cultures positive for Pseudomonas and GPC. [facility] was not receptive to performing a comprehensive work-up. * ID consultation, discussed with Hang Eubanks NP today. * Interventional radiology to attempt abscess drainage * Continue IV aztreonam for now (day 3) 2. Cystitis. Patient has penicillin allergy, tolerating aztreonam well. No Agrawal prior to admission. 3. Hypertension history, but stable now. 4. Acute kidney injury with reported chronic kidney disease, signs of obstructive uropathy with bilateral hydronephrosis. Followed as an outpatient by Dr. Bhupendra Kelly. * Renal ultrasound today 5. Bilateral foot drop. Has never had formal NCV/EMG or neurology evaluation * Discussed with Dr. Darien Maldonado, who will evaluate tomorrow morning. 6. Prophylaxis: SCDs for DVT prophylaxis, Pepcid for GI prophylaxis and probiotics 7. Disposition: Transfer to [facility] on hold, after they held it up. Planning to pursue full workup here at [facility]. * Patient is Full-Code * Former [employer]; she lives at home with her Kaci Isaac Perkins MD PhD [phone] Subjective 24 Hr Interval Summary Free Text/Dictation Don at her bedside. Sitting up, feeling much better. Able to keep solid food down now, without nausea. Still with mild suprapubic pain. Exam/Review of Systems Vital Signs Vitals Vital Signs Date Time Temp Pulse Resp B/P Pulse Ox O2 Delivery O2 Flow Rate FiO2 08/28/16 19:52 99.0 72 18 121/60 98 08/26/16 23:05 Room Air Intake and Output 08/27/16 08/27/16 08/28/16 15:00 23:00 07:00 Intake Total 1750 ml 1710 ml Output Total 1500 ml 850 ml Balance 250 ml 860 ml Exam Constitutional: Sitting up in bed, smiling, comfortable-appearing Eyes: EOMI, nl conjunctiva, mucosa moist, neck supple with no adenopathy, JVD, or thyromegaly Respiratory: clear to auscultation, normal air movement Cardiovascular: nl pulses, regular rate and rhythm Gastrointestinal: soft, with mild tenderness across the suprapubic area, but with no rebound or guarding. Some subcutaneous sclerosis evident. UG: No CVA tenderness. Agrawal in place. Extremities: normal pulses, with no edema, clubbing or cyanosis Neurological: VICE PRESIDENT RISK MANAGEMENT II-XII intact, lethargic, nl mental status, nl speech. Severe sensory loss in both feet, with bilateral foot drop. Equivocal Babinski. Trace patellar reflexes. Results Result Diagram: 08/27/16 0710 08/27/16 0710 Medications Medications Current Medications Calcitriol (Rocaltrol) 0.25 mcg DAILY PO Last administered on 08/28/16 09:04; Admin Dose 0.25 MCG; Start 08/27/16 at 09:00 Ferrous Sulfate (Ferrous Sulfate (Ec)) 325 mg DAILY PO Last administered on 08/28 09:04; Admin Dose 325 MG; Start 08/27/16 at 09:00 Sodium Bicarbonate (Sodium Bicarbonate Tab) 325 mg BID PO Last administered on 08/28/16 22:00; Admin Dose 325 MG; Start 08/26/16 at 22:30 Atorvastatin Calcium 20 mg 20 mg QHS PO Last administered on 08/28/16 22:00; Admin Dose 20 MG; Start 08/26/16 at 21:00 Sodium Chloride (NS) 1,000 ml @ 100 mls/hr Q10H IV Last administered on 19:55; Admin Dose 100 MLS/HR; Start 08/26/16 at 21:21 Ondansetron HCl (Zofran Inj) 4 mg Q6H PRN IV NAUSEA AND/OR VOMITING Last administered on 08/27/16 09:33; Admin Dose 4 MG; Start 08/26/16 at 21:30 Acetaminophen (Tylenol Tab) 650 mg Q6H PRN PO PAIN LEVEL 1-3 OR FEVER; Start at 21:30 Acetaminophen/ Hydrocodone Bitart ([place] (5/325)) 1 tab Q6H PRN PO MODERATE PAIN LEVEL 4-6 Last administered on 08/27/16 20:18; Admin Dose 1 TAB; Start 08/26 at 21:30 Acetaminophen/ Hydrocodone Bitart ([place] (5/325)) 2 tab Q6H PRN PO SEVERE PAIN LEVEL 7-10; Start 08/26/16 at 21:30 Morphine Sulfate (morphine) 2 mg Q4H PRN IV SEVERE PAIN LEVEL 7-10; Start at 21:30 Docusate Sodium (Colace) 100 mg Q12H PRN PO CONSTIPATION; Start 08/26/16 at 21: 30 Magnesium Hydroxide (Milk Of Mag) 30 ml DAILY PRN PO CONSTIPATION; Start at 21:30 Bisacodyl (Dulcolax Supp) 10 mg DAILY PRN [place] CONSTIPATION; Start 08/26/16 at 21: 30 Famotidine 20 mg 20 mg DAILY PO Last administered on 08/28/16 09:03; Admin Dose 20 MG; Start 08/27/16 at 09:00 Levofloxacin/ Dextrose 150 ml @ 100 mls/hr Q48H IVPB ; Start 08/28/16 at 22:00 Aztreonam (Azactam 1gm/NS (Pmx)) 50 ml @ 100 mls/hr Q12 IVPB Last administered on 08/28/16 21:59; Admin Dose 100 MLS/HR; Start 08/27/16 at 21:00 DARIN PERKINS M.D. Aug 28, 2016 23:35 Famotidine 20 mg 20 mg DAILY PO Last administered on 08/28/16 09:03; Admin Dose 20 MG; Start 08/27/16 at 09:00 Levofloxacin/ Dextrose 150 ml @ 100 mls/hr Q48H IVPB ; Start 08/28/16 at 22:00 Aztreonam (Azactam 1gm/NS (Pmx)) 50 ml @ 100 mls/hr Q12 IVPB Last administered on 08/28/16 21:59; Admin Dose 100 MLS/HR; Start 08/27/16 at 21:00 DARIN PERKINS M.D. Aug 28, 2016 23:35
[2016-08-28] MEDS: LEVOFLOXACIN 750MG/D5W (PMX) 150 ML IVPB SCH (23:59)
[2016-08-29] VITALS (13 sets, daily range): BP systolic 117–176; BP diastolic 56–85; PULSE 55–64; RESP 16–20
[2016-08-29] MEDS: NA BICARBONATE 650 MG TAB PO SCH ×2 (09:00→21:31)
[2016-08-29] MEDS: CALCITRIOL 0.25 MCG CAP PO SCH (09:00)
[2016-08-29] MEDS: FERROUS SULFATE (EC) 325 MG TAB PO SCH (09:00)
[2016-08-29] MEDS: FAMOTIDINE 20 MG TAB PO SCH (09:00)
[2016-08-29] MEDS: AZTREONAM 1 GM/NS (PMX) 50 ML IVPB SCH ×2 (09:06→21:31)
[2016-08-29] MEDS: SOD CHLORIDE 0.9% 1,000 ML IV SCH (09:11)
[2016-08-29 12:32] LABS: BASOPHILS % 0.1 % (0.0-2.0); EOSINOPHILS % 0.6 % (0.0-7.0); HEMATOCRIT 27.8 % (37.0-47.0); HEMOGLOBIN 9.4 g/dl (12.0-16.0); LYMPHOCYTES # 0.6 10^3/ul (0.8-2.9); LYMPHOCYTES % 7.9 % (15.0-51.0); MEAN CORPUSCULAR HEMOGLOBIN 29.6 pg (29.0-33.0); MEAN CORPUSCULAR HGB CONC 33.7 g/dl (32.0-37.0); MEAN CORPUSCULAR VOLUME 87.9 fl (82.0-101.0); MEAN PLATELET VOLUME 8.3 fl (7.4-10.4); MONOCYTE # 0.7 10^3/ul (0.3-0.9); NEUTROPHIL # 6.8 10^3/ul (1.6-7.5); NEUTROPHILS % 82.4 % (39.0-77.0); PLATELET COUNT 250 10^3/UL (140-440); RED BLOOD COUNT 3.16 10^6/ul (4.20-5.40); RED CELL DISTRIBUTION WIDTH 16.4 % (11.5-14.5); UNCORRECTED WBC 8.3 10^3/ul (4.8-10.8); WHITE BLOOD COUNT 8.3 10^3/ul (4.8-10.8)
[2016-08-29 12:38] LABS: CONDITION 1; LH ANALYZER COMMENTS 1
--- NOTE | 2016-08-29 12:45 | PN ---
Date/Time of Note Date/Time of Note DATE: 08/29/16 TIME: 11:58 Assessment/Plan VTE Prophylaxis VTE Prophylaxis Intervention: SCD's Lines/Catheters IV Catheter Type (from Nrs): Peripheral IV Urinary Cath still in place: Yes Reason Cath still needed: urinary retention, other (indicate) (JACI) Assessment/Plan Assessment/Plan 81-year-old female with: 1. Pseudomonas Aeruginosa Cystitis and bacteremia On Aztreonam and Levaquin Repeat labs pending today Afebrile and also ordered repeat blood cx today. 2. 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 Murillo. ESR up to 130 IR drainage of abscess today if possible with cytology and cultures Continue current antibiotics. 3. Hypertension: stable BP currently. 4. Acute kidney injury with reported chronic kidney disease, signs of obstructive uropathy with bilateral hydronephrosis on CT Agrawal catheter in place with good UOP Labs pending this AM Patient reports that she is followed by Dr. Kelly for nephrology, apparently at [facility] based on the records her renal function was normal in June 2016. Replete potassium prn Prophylaxis: SCDs for DVT prophylaxis, Pepcid for GI prophylaxis and probiotics Disposition: On medical surgical and IR drainage of abscess/fluid collection pending today Subjective 24 Hr Interval Summary Free Text/Dictation Patient remains hemodynamically stable but confirmed Pseudomonas cystitis and Bacteremia, sensitive to Levaquin Also 1/2 coag neg staph likely a contaminant but on Aztreonam still Repeat blood cx ordered today and awaiting today's labs Exam/Review of Systems Vital Signs Vitals Vital Signs Date Time Temp Pulse Resp B/P Pulse Ox O2 Delivery O2 Flow Rate FiO2 08/29/16 07:48 97.6 56 18 117/56 98 08/26/16 23:05 Room Air Intake and Output 08/28/16 08/28/16 08/29/16 15:00 23:00 07:00 Intake Total 1940 ml 1500 ml Output Total 850 ml 1750 ml Balance 1090 ml -250 ml Exam Constitutional: alert, frail, oriented, other (pale) Respiratory: clear to auscultation, normal air movement Cardiovascular: nl pulses, regular rate and rhythm Gastrointestinal: soft, tender (suprapubic ) Musculoskeletal: nl extremities to inspection Extremities: normal pulses, other (no edema, clubbing or cyanosis ) Neurological: REFUELING RAMPMAN II-XII intact, nl mental status, nl speech, other ( generalised weakness ) Results Result Diagram: 08/27/16 0710 08/27/16 0710 Medications Medications Current Medications Calcitriol (Rocaltrol) 0.25 mcg DAILY PO Last administered on 08/28/16 09:04; Admin Dose 0.25 MCG; Start 08/27/16 at 09:00 Ferrous Sulfate (Ferrous Sulfate (Ec)) 325 mg DAILY PO Last administered on 08/28 09:04; Admin Dose 325 MG; Start 08/27/16 at 09:00 Sodium Bicarbonate (Sodium Bicarbonate Tab) 325 mg BID PO Last administered on 08/28/16 22:00; Admin Dose 325 MG; Start 08/26/16 at 22:30 Atorvastatin Calcium 20 mg 20 mg QHS PO Last administered on 08/28/16 22:00; Admin Dose 20 MG; Start 08/26/16 at 21:00 Sodium Chloride (NS) 1,000 ml @ 100 mls/hr Q10H IV Last administered on 09:11; Admin Dose 100 MLS/HR; Start 08/26/16 at 21:21 Ondansetron HCl (Zofran Inj) 4 mg Q6H PRN IV NAUSEA AND/OR VOMITING Last administered on 08/27/16 09:33; Admin Dose 4 MG; Start 08/26/16 at 21:30 Acetaminophen (Tylenol Tab) 650 mg Q6H PRN PO PAIN LEVEL 1-3 OR FEVER; Start at 21:30 Acetaminophen/ Hydrocodone Bitart ([place] (5/325)) 1 tab Q6H PRN PO MODERATE PAIN LEVEL 4-6 Last administered on 08/27/16 20:18; Admin Dose 1 TAB; Start 08/26 at 21:30 Acetaminophen/ Hydrocodone Bitart ([place] (5/325)) 2 tab Q6H PRN PO SEVERE PAIN LEVEL 7-10; Start 08/26/16 at 21:30 Morphine Sulfate (morphine) 2 mg Q4H PRN IV SEVERE PAIN LEVEL 7-10; Start at 21:30 Docusate Sodium (Colace) 100 mg Q12H PRN PO CONSTIPATION; Start 08/26/16 at 21: 30 Magnesium Hydroxide (Milk Of Mag) 30 ml DAILY PRN PO CONSTIPATION; Start at 21:30 Bisacodyl (Dulcolax Supp) 10 mg DAILY PRN [place] CONSTIPATION; Start 08/26/16 at 21: 30 Famotidine 20 mg 20 mg DAILY PO Last administered on 08/28/16 09:03; Admin Dose 20 MG; Start 08/27/16 at 09:00 Levofloxacin/ Dextrose 150 ml @ 100 mls/hr Q48H IVPB Last administered on 23:59; Admin Dose 100 MLS/HR; Start 08/28/16 at 22:00 Aztreonam (Azactam 1gm/NS (Pmx)) 50 ml @ 100 mls/hr Q12 IVPB Last administered on 08/29/16 09:06; Admin Dose 100 MLS/HR; Start 08/27/16 at 21:00 DAYANNA DEVLIN Aug 29, 2016 12:08
[2016-08-29 13:18] LABS: CREATININE 1.02 mg/dl (0.44-1.00)
[2016-08-29 13:19] LABS: MAGNESIUM 1.1 mg/dl (1.7-2.5)
[2016-08-29 13:23] LABS: POTASSIUM 2.7 mmol/L (3.5-5.1)
[2016-08-29] MEDS ORDERED: POTASSIUM CHLORIDE (SR) 20 MEQ TAB PO STA (13:24)
[2016-08-29] MEDS ORDERED: MAGNESIUM SULFATE 4 GM/100 ML 100 ML IVPB ONE (14:30)
[2016-08-29] MEDS ORDERED: POTASSIUM CHLORIDE 250 ML IVPB ONE (15:00)
[2016-08-29] MEDS ORDERED: MIDAZOLAM 1 MG/ML 2 ML INJ ONE (15:36)
[2016-08-29] MEDS ORDERED: FENTAnyl 50 MCG/ML VIAL ONE (15:36)
[2016-08-29] MEDS ORDERED: SOD CHLORIDE 0.9% 500 ML ONE (15:36)
[2016-08-29] MEDS ORDERED: LIDOCAINE 1% (MDV) 20 ML INJ ONE (15:36)
--- NOTE | 2016-08-29 16:30 | RADRPT ---
PROCEDURE: CT guided pelvic abscess drainage procedure CLINICAL INDICATION: Pelvic abscess TECHNIQUE: Informed written consent was obtained. A time-out was performed. A preliminary [place] CT scan of the pelvis was performed. Markers were placed on the skin for localization. The overlyi ng skin of the left anterior pelvis was prepped and draped in the usual sterile fashion. Approximat robbie 10 cc of lidocaine was injected locally for pain control. A 5-Faroese Yueh catheter was introduc ed into the fluid collection within the left anterior pelvic wall. A wire was placed through the ca theter, the tract was dilated, and a 12 Faroese locking pigtail catheter was placed into the fluid co llection without difficulty. Approximately 6 cc purulent material was aspirated without difficulty and sent to the laboratory for further analysis. The patient tolerated procedure well. No complicati ons occurred. Postprocedural CT scan revealed no complications. No significant hemorrhage or other abnormality was seen. COMPARISON: CT, 08/26/2016 FINDINGS: Successful percutaneous drainage of pelvic abscess. Purulent material was aspirated and sent to the laboratory for further analysis. IMPRESSION: Successful CT guided fluid collection drainage procedure. No complications occurred. RPTAT: QQ .Rashard Mas MD, MD Date Time Electronically viewed and signed by .Rashard Mas MD, on 08/29/2016 16:29 .R/
[2016-08-29] MEDS: POTASSIUM CHLORIDE 40 MEQ in SOD CHLORIDE 0.9% 1,000 ML IV SCH ×2 (17:32→23:03)
--- NOTE | 2016-08-29 19:13 | PN ---
DATE: 08/29/2016 SUBJECTIVE: No acute changes overnight. The patient is alert, lying comfortably in bed. Still has some pain over her left pubic area on light palpation. No fevers. Family at bedside. LABORATORY DATA: No labs this morning. MICROBIOLOGY: Blood and urine culture growing Pseudomonas aeruginosa. Final sensitivities in blood are pending. ALLERGIES: 1. ZOSYN. 2. PENICILLIN. ANTIMICROBIALS: The patient is on: 1. Levaquin. 2. Aztreonam. INDWELLINGS: Agrawal catheter. PHYSICAL EXAMINATION: GENERAL: Fragile, elderly woman who is alert, in no distress. HEENT: Head atraumatic, normocephalic. Sclerae anicteric. Buccal mucosa pink. NECK: Supple, trachea midline. CHEST: Rise symmetrical. Breath sounds clear. HEART: S1, S2. ABDOMEN: Soft. Bowel sounds present. EXTREMITIES: No cyanosis. ASSESSMENT: 1. Sepsis with Pseudomonas aeruginosa bacteremia secondary to #2. 2. Acute pyelonephritis with Pseudomonas aeruginosa urinary tract infection. 3. Questionable suprapubic abscess as per MRI of the pelvis with a questionable osteomyelitis of th e pubic symphysis. 4. Anemia. 5. Acute renal failure. 6. Significant urinary retention, status post Agrawal placed on admission. PLAN: The patient remains stable, covered with appropriate antimicrobials, pending final sensitivit ies of her blood and pending a CT-guided pubic fluid aspiration. The above was discussed with the family. Dictated By: BALAJI JOLLY CELL OPERATION SUPERVISOR for MATT CHAPMAN/SHREYA Conf#: [id number] DID#: [id number]
[2016-08-29] MEDS: ATORVASTATIN 20 MG TAB PO SCH (21:31)
--- NOTE | 2016-08-29 21:51 | CONS ---
DATE OF ADMISSION: 08/26/2016 DATE OF CONSULTATION: 08/29/2016 TYPE OF CONSULTATION: Neurological. Thank you, Dr. Perkins, for your kind referral for evaluation of bilateral lower extremity weakness. 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 She had radiation but not chemotherapy. She about 3 months ago was diagnosed with pelvic abscess/mass and pelvic osteomyelitis at [facility], treated with antibiotics, but again presented with fever, chills and significant leukocytosis. The patient had abscess drainage done today, and she had MRI of the pelvis without contrast which shows complex fluid collection emanating from the pubic symphysis, likely represented abscess with surrounding phlegmon as described above; marked irregularity of the cortical margins of the pubic symphysis; inferior and superior pubic rami suggestive of osteomyelitis. CAT scan of the abdomen and pelvis was done also showing area of bony erosion noted involving pubic symphysis with loculated fluid collections. Distention of the bladder was seen concerning for urinary retention, moderate to severe bilateral hydroureteronephrosis possibly indicated urinary backflow, colonic diverticulosis. The patient has also history of hypertension, acute on chronic kidney failure. The patient stated that about 5 years ago she developed right-sided foot drop and severe numbness in the leg. About 2 years ago, she started having tingling and numbness in the left leg, and in the last year, half a year ago, she developed foot drop on the left as well. She is weak in bilateral lower extremities. She stated that she does not have any back pain. She denied any bowel or bladder problem, exception of the last few days. She stated that she did not have any problem urinating and did not have any accidents. In the last few days, she has catheter. ALLERGIES: 1. PENICILLINS. 2. TRIMETHOPRIM. 3. SULFAMETHOXAZOLE. SOCIAL HISTORY: No alcohol, tobacco, drug use. FAMILY HISTORY: Not contributory. REVIEW OF SYSTEMS: All pertinent positives included in the above history of present illness. The patient stated that she used to walk using the left leg, but in the last half a year, she is essentially wheelchair bound. MEDICATIONS CURRENTLY: 1. Levofloxacin. 2. Aztreonam. 3. Calcitriol. 4. Iron. 5. Pepcid. 6. Pain medication. 7. Lipitor 20 mg. PHYSICAL EXAMINATION: VITAL SIGNS: Temperature 98.3, pulse 53, respirations 18, blood pressure 136/ 65. GENERAL: Not in acute distress, lying in bed. HEENT: Normocephalic, atraumatic head. NECK: No carotid bruits. No thyromegaly. LUNGS: Clear to auscultation bilaterally. CARDIAC: Normal cardiac rhythm and sounds. ABDOMEN: Soft. EXTREMITIES: No cyanosis, clubbing or edema. NEUROLOGIC: She is awake, alert and oriented x3 with fluent speech. Cranial nerve examination shows intact visual ochoa bilaterally. Pupils round, reactive to light from 3 to 2 mm bilaterally. Extraocular movements intact without nystagmus. Symmetrical face. Preserved facial strength and sensation. Tongue is in midline. Palate elevates symmetrically. Motor strength examination preserved in upper extremities. Lower extremities: Hip flexion, adduction of the hips, knee extension I would say 3/5. Stronger knee extension on the left, 3+/5. No movements across the ankles. Sensory examination: No sensation perceived up to the knee level in bilateral lower extremities and minimally diminished perception of pinprick in the fingertips. Coordination preserved on [id number] testing. No dysmetria or tremor. IMPRESSION: Bilateral lower paresis, worse distally with foot drop, started on the right about 5 years ago, on the left about half a year ago. The patient has history of vaginal cancer in 1998, status post radiation. Etiology of the weakness and numbness could include lumbosacral polyradiculopathy, cauda equina , bilateral plexopathy. Possibility of polyneuropathy is also on differential but not very likely given only minimal involvement of upper extremities and clearly asymmetrical onset and progression of the symptoms. I would obtain MRI of the lumbar spine and also will review MRI of the pelvis and CAT scan of the pelvis with the radiologist to see if there is any suggestion of any involvement of plexuses. I do not know if radiation for vaginal cancer would cause possible post-radiation plexopathy. Possibly an EMG nerve conduction study on outpatient basis could clarify something. Thank you very much for this interesting consultation. Dictated By: ISMAEL FINE/SHREYA Conf#: [id number] DID#: [id number] [facility] HEALTH PARTNERSLuis
[2016-08-29] MEDS: morphine 2 MG INJ IV PRN (22:49)
[2016-08-30 06:42] LABS: BASOPHILS % 0.2 % (0.0-2.0); EOSINOPHILS # 0.1 10^3/ul (0.0-0.5); EOSINOPHILS % 0.9 % (0.0-7.0); HEMATOCRIT 27.6 % (37.0-47.0); HEMOGLOBIN 9.3 g/dl (12.0-16.0); MEAN CORPUSCULAR HEMOGLOBIN 29.7 pg (29.0-33.0); MEAN CORPUSCULAR HGB CONC 33.6 g/dl (32.0-37.0); MEAN CORPUSCULAR VOLUME 88.3 fl (82.0-101.0); MEAN PLATELET VOLUME 8.4 fl (7.4-10.4); MONOCYTE # 0.9 10^3/ul (0.3-0.9); MONOCYTES % 8.5 % (0.0-11.0); NEUTROPHIL # 8.1 10^3/ul (1.6-7.5); NEUTROPHILS % 80.4 % (39.0-77.0); PLATELET COUNT 273 10^3/UL (140-440); RED BLOOD COUNT 3.13 10^6/ul (4.20-5.40); RED CELL DISTRIBUTION WIDTH 16.5 % (11.5-14.5); UNCORRECTED WBC 10.1 10^3/ul (4.8-10.8); WHITE BLOOD COUNT 10.1 10^3/ul (4.8-10.8)
[2016-08-30 06:51] LABS: MAGNESIUM 1.9 mg/dl (1.7-2.5); PHOSPHORUS 2.4 mg/dl (2.5-4.9); POTASSIUM 4.3 mmol/L (3.5-5.1)
[2016-08-30 06:53] LABS: CREATININE 0.99 mg/dl (0.44-1.00)
[2016-08-30 06:55] LABS: CALCIUM 8.2 mg/dl (8.4-10.2)
[2016-08-30 07:17] LABS: CONDITION 1; LH ANALYZER COMMENTS 1
--- NOTE | 2016-08-30 08:15 | PQ ---
Date/Time of Note Date/Time of Note DATE: 08/30/16 TIME: 08:[address] Devlin, A review of the medical record found a need for documentation clarification. H & P - Cystitis, rule out bacteremia given the fact that the patient was admitted with chills, fever at home, significant leukocytosis( 27.2). Lab + blood culture (Pseudomonas) + Urine culture Tx - Levofloxacin IV + Azteonam IV w/ ID consult - Sepsis with Pseudomonas aeruginosa bacteremia Please clarify a diagnosis being treated. To facilitate accurate and complete coding, please wesley ( x ) the suspected diagnosis that apply: ( X) Bacteremia with Sepsis (POA) ( ) Bacteremia without sepsis ( ) Others Please provide your response by clicking edit document, making your choice ( x ), click ok/save and finally click sign. You may also document your response on your progress notes. Thank you for your time. Percy Riley RN, BSN, CCS, CCDS Clinical Boat [employer]her Health Information Management, CDI and Coding Services [phone] Room # 1525 - Coding [address]~ [id number] PERCY RILEY Aug 30, 2016 08:15 DAYANNA DEVLIN Aug 31, 2016 08:49
[2016-08-30 08:29] VITALS: BP 153/66; RESP 18
[2016-08-30] MEDS: AZTREONAM 1 GM/NS (PMX) 50 ML IVPB SCH (08:44)
[2016-08-30] MEDS: FAMOTIDINE 20 MG TAB PO SCH (08:44)
[2016-08-30] MEDS: FERROUS SULFATE (EC) 325 MG TAB PO SCH (08:44)
[2016-08-30] MEDS: NA BICARBONATE 650 MG TAB PO SCH ×2 (08:44→20:31)
[2016-08-30] MEDS: CALCITRIOL 0.25 MCG CAP PO SCH (08:44)
[2016-08-30] MEDS: morphine 2 MG INJ IV PRN (08:55)
[2016-08-30] MEDS: POTASSIUM CHLORIDE 40 MEQ in SOD CHLORIDE 0.9% 1,000 ML IV SCH ×2 (09:54→15:31)
--- NOTE | 2016-08-30 11:23 | PN ---
Date/Time of Note Date/Time of Note DATE: 08/30/16 TIME: 11:12 Assessment/Plan VTE Prophylaxis VTE Prophylaxis Intervention: LMWH Lines/Catheters IV Catheter Type (from Nrsg): Peripheral IV Urinary Cath still in place: Yes Reason Cath still needed: urinary retention Assessment/Plan Assessment/Plan 1. pelvic abscess, s/p percutaneous drainage. 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 bilat leg weakness, appreciate neuro input, await MRI, cont wheelchair 3/ s/p vulvectomy 4. discharge planning Subjective 24 Hr Interval Summary Free Text/Dictation no new complaints, pain improved, improved apetite Exam/Review of Systems Vital Signs Vitals Vital Signs Date Time Temp Pulse Resp B/P Pulse Ox O2 Delivery O2 Flow Rate FiO2 08/30/16 08:29 98.0 71 18 153/66 98 08/29/16 16:35 Room Air 08/29/16 16:30 2.0 Intake and Output 08/29/16 08/29/16 08/30/16 15:00 23:00 07:00 Intake Total 450 ml 150 ml 1150 ml Output Total 1362 ml 710 ml Balance 450 ml -1212 ml 440 ml Exam Constitutional: alert Respiratory: clear to auscultation Cardiovascular: regular rate and rhythm Gastrointestinal: non-tender, soft Results Result Diagram: 08/30/16 0530 08/30/16 0530 Results 24 hrs Laboratory Tests Test 08/29/16 12:10 08/30/16 05:30 Anion Gap 12 14 Basophils # 0.0 0.0 Basophils % 0.1 0.2 Blood Morphology Comment Blood Urea Nitrogen 33 H 28 H Calcium Level 8.0 L 8.2 L Carbon Dioxide Level 27 26 Chloride Level 103 104 Creatinine 1.02 H 0.99 Eosinophils # 0.0 0.1 Eosinophils % 0.6 0.9 Glucose Level 99 86 Hematocrit 27.8 L 27.6 L Hemoglobin 9.4 L 9.3 L Lymphocytes # 0.6 L 1.0 Lymphocytes % 7.9 L 10.0 L Magnesium Level 1.1 L 1.9 Mean Corpuscular Hemoglobin 29.6 29.7 Mean Corpuscular Hemoglobin Concent 33.7 33.6 Mean Corpuscular Volume 87.9 88.3 Mean Platelet Volume 8.3 # 8.4 Monocytes # 0.7 0.9 Monocytes % 9.0 8.5 Neutrophils # 6.8 8.1 H Neutrophils % 82.4 H 80.4 H Nucleated Red Blood Cells # 0.0 0.0 Nucleated Red Blood Cells % 0.0 0.0 Platelet Count 250 273 Potassium Level 2.7 *L 4.3 Red Blood Count 3.16 L 3.13 L Red Cell Distribution Width 16.4 H 16.5 H Sodium Level 139 140 White Blood Count 8.3 # 10.1 # Phosphorus Level 2.4 L Medications Medications Current Medications Calcitriol (Rocaltrol) 0.25 mcg DAILY PO Last administered on 08/30/16 08:44; Admin Dose 0.25 MCG; Start 08/27/16 at 09:00 Ferrous Sulfate (Ferrous Sulfate (Ec)) 325 mg DAILY PO Last administered on 08/30 08:44; Admin Dose 325 MG; Start 08/27/16 at 09:00 Sodium Bicarbonate (Sodium Bicarbonate Tab) 325 mg BID PO Last administered on 08/30/16 08:44; Admin Dose 325 MG; Start 08/26/16 at 22:30 Atorvastatin Calcium (Lipitor) 20 mg QHS PO Last administered on 08/29/16 21:31 ; Admin Dose 20 MG; Start 08/26/16 at 21:00 Ondansetron HCl (Zofran Inj) 4 mg Q6H PRN IV NAUSEA AND/OR VOMITING Last administered on 08/27/16 09:33; Admin Dose 4 MG; Start 08/26/16 at 21:30 Acetaminophen (Tylenol Tab) 650 mg Q6H PRN PO PAIN LEVEL 1-3 OR FEVER; Start at 21:30 Acetaminophen/ Hydrocodone Bitart ([place] (5/325)) 1 tab Q6H PRN PO MODERATE PAIN LEVEL 4-6 Last administered on 08/27/16 20:18; Admin Dose 1 TAB; Start 08/26 at 21:30 Acetaminophen/ Hydrocodone Bitart ([place] (5/325)) 2 tab Q6H PRN PO SEVERE PAIN LEVEL 7-10; Start 08/26/16 at 21:30 Morphine Sulfate (morphine) 2 mg Q4H PRN IV SEVERE PAIN LEVEL 7-10 Last administered on 08/30/16 08:55; Admin Dose 2 MG; Start 08/26/16 at 21:30 Docusate Sodium (Colace) 100 mg Q12H PRN PO CONSTIPATION; Start 08/26/16 at 21: 30 Magnesium Hydroxide (Milk Of Mag) 30 ml DAILY PRN PO CONSTIPATION; Start at 21:30 Bisacodyl (Dulcolax Supp) 10 mg DAILY PRN [place] CONSTIPATION; Start 08/26/16 at 21: 30 Famotidine 20 mg 20 mg DAILY PO Last administered on 08/30/16 08:44; Admin Dose 20 MG; Start 08/27/16 at 09:00 Levofloxacin/ Dextrose 150 ml @ 100 mls/hr Q48H IVPB Last administered on 23:59; Admin Dose 100 MLS/HR; Start 08/28/16 at 22:00 Aztreonam 50 ml @ 100 mls/hr Q12 IVPB Last administered on 08/30/16 08:44; Admin Dose 100 MLS/HR; Start 08/27/16 at 21:00 Potassium Chloride/Sodium Chloride (KCl/NS) 1,020 ml @ 100 mls/hr [id number] IV Last administered on 08/29/16 17:32; Admin Dose 100 MLS/HR; Start 08/29/16 at 13: 30 CLAY MELISSA MD Aug 30, 2016 11:22
--- NOTE | 2016-08-30 13:12 | CONS ---
Date/Time of Note Date/Time of Note DATE: 08/30/16 TIME: 13:09 Assessment/Plan Assessment/Plan Chief Complaint/Hosp Course SUBJECTIVE: No acute changes overnight. The patient is alert, lying comfortably in bed. No fevers. MICROBIOLOGY: Blood and urine culture growing Pseudomonas aeruginosa. Final sensitivities in blood are pending. ALLERGIES: 1. ZOSYN. 2. PENICILLIN. ANTIMICROBIALS: The patient is on: 1. Levaquin. 2. Aztreonam. INDWELLINGS: Agrawal catheter. PHYSICAL EXAMINATION: GENERAL: Fragile, elderly woman who is alert, in no distress. HEENT: Head atraumatic, normocephalic. Sclerae anicteric. Buccal mucosa pink. NECK: Supple, trachea midline. CHEST: Rise symmetrical. Breath sounds clear. HEART: S1, S2. ABDOMEN: Soft. Bowel sounds present. EXTREMITIES: No cyanosis. BLE edema R>L ASSESSMENT: 1. Sepsis with Pseudomonas aeruginosa bacteremia secondary to #2. 2. Acute pyelonephritis with Pseudomonas aeruginosa urinary tract infection. 3. 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 4. Anemia. 5. Acute renal failure. 6. Significant urinary retention, status post Agrawal placed on admission. 7. BLE edema==> R>L, chronic per pt PLAN: The patient remains stable, will start Vancomycin, dc Azactam, continue Levaquin, await for fluid cx, consider PICC===> pt needs to be on 6-8 weeks abx for [facility] staff Problems: Consultation Date/Type/Reason Admit Date/Time Aug 26, 2016 at 18:43 Initial Consult Date 08/26/16 Type of Consultation: id Referring Provider: DARIN RICE M.D. Exam/Review of Systems Vital Signs Vitals Vital Signs Date Time Temp Pulse Resp B/P Pulse Ox O2 Delivery O2 Flow Rate FiO2 08/30/16 08:29 98.0 71 18 153/66 98 08/29/16 16:35 Room Air 08/29/16 16:30 2.0 Intake and Output 08/29/16 08/29/16 08/30/16 15:00 23:00 07:00 Intake Total 450 ml 150 ml 1150 ml Output Total 1362 ml 710 ml Balance 450 ml -1212 ml 440 ml Results Result Diagram: 08/30/16 0530 08/30/16 0530 Results 24 hrs Laboratory Tests Test 08/30/16 05:30 Anion Gap 14 Basophils # 0.0 Basophils % 0.2 Blood Morphology Comment Blood Urea Nitrogen 28 H Calcium Level 8.2 L Carbon Dioxide Level 26 Chloride Level 104 Creatinine 0.99 Eosinophils # 0.1 Eosinophils % 0.9 Glucose Level 86 Hematocrit 27.6 L Hemoglobin 9.3 L Lymphocytes # 1.0 Lymphocytes % 10.0 L Magnesium Level 1.9 Mean Corpuscular Hemoglobin 29.7 Mean Corpuscular Hemoglobin Concent 33.6 Mean Corpuscular Volume 88.3 Mean Platelet Volume 8.4 Monocytes # 0.9 Monocytes % 8.5 Neutrophils # 8.1 H Neutrophils % 80.4 H Nucleated Red Blood Cells # 0.0 Nucleated Red Blood Cells % 0.0 Phosphorus Level 2.4 L Platelet Count 273 Potassium Level 4.3 Red Blood Count 3.13 L Red Cell Distribution Width 16.5 H Sodium Level 140 White Blood Count 10.1 # Medications Medications Current Medications Calcitriol (Rocaltrol) 0.25 mcg DAILY PO Last administered on 08/30/16 08:44; Admin Dose 0.25 MCG; Start 08/27/16 at 09:00 Ferrous Sulfate (Ferrous Sulfate (Ec)) 325 mg DAILY PO Last administered on 08/30 08:44; Admin Dose 325 MG; Start 08/27/16 at 09:00 Sodium Bicarbonate (Sodium Bicarbonate Tab) 325 mg BID PO Last administered on 08/30/16 08:44; Admin Dose 325 MG; Start 08/26/16 at 22:30 Atorvastatin Calcium (Lipitor) 20 mg QHS PO Last administered on 08/29/16 21:31 ; Admin Dose 20 MG; Start 08/26/16 at 21:00 Ondansetron HCl (Zofran Inj) 4 mg Q6H PRN IV NAUSEA AND/OR VOMITING Last administered on 08/27/16 09:33; Admin Dose 4 MG; Start 08/26/16 at 21:30 Acetaminophen (Tylenol Tab) 650 mg Q6H PRN PO PAIN LEVEL 1-3 OR FEVER; Start at 21:30 Acetaminophen/ Hydrocodone Bitart ([place] (5/325)) 1 tab Q6H PRN PO MODERATE PAIN LEVEL 4-6 Last administered on 08/27/16 20:18; Admin Dose 1 TAB; Start 08/26 at 21:30 Acetaminophen/ Hydrocodone Bitart ([place] (5/325)) 2 tab Q6H PRN PO SEVERE PAIN LEVEL 7-10; Start 08/26/16 at 21:30 Morphine Sulfate (morphine) 2 mg Q4H PRN IV SEVERE PAIN LEVEL 7-10 Last administered on 08/30/16 08:55; Admin Dose 2 MG; Start 08/26/16 at 21:30 Docusate Sodium (Colace) 100 mg Q12H PRN PO CONSTIPATION; Start 08/26/16 at 21: 30 Magnesium Hydroxide (Milk Of Mag) 30 ml DAILY PRN PO CONSTIPATION; Start at 21:30 Bisacodyl (Dulcolax Supp) 10 mg DAILY PRN [place] CONSTIPATION; Start 08/26/16 at 21: 30 Famotidine 20 mg 20 mg DAILY PO Last administered on 08/30/16 08:44; Admin Dose 20 MG; Start 08/27/16 at 09:00 Levofloxacin/ Dextrose 150 ml @ 100 mls/hr Q48H IVPB Last administered on 23:59; Admin Dose 100 MLS/HR; Start 08/28/16 at 22:00 Potassium Chloride/Sodium Chloride (KCl/NS) 1,020 ml @ 100 mls/hr [id number] IV Last administered on 08/29/16 17:32; Admin Dose 100 MLS/HR; Start 08/29/16 at 13: 30 BALAJI JOLLY NP Aug 30, 2016 13:12
[2016-08-30] MEDS ORDERED: VANCOMYCIN IV PER PHARMACY XX SCH (13:30)
--- NOTE | 2016-08-30 15:08 | RADRPT ---
PROCEDURE: MRI Lumbar Spine without contrast. CLINICAL INDICATION: 81-year-old female with lumbar spine pain with bilateral lower extremity weak ness. TECHNIQUE: An MRI of the lumbar spine was performed with multiple sequences in the sagittal and ax ial planes without contrast. Images reviewed on a high-resolution PACS system. COMPARISON: None available at the time of dictation. FINDINGS: There is diffuse artifact throughout the upper lumbar spine, slightly limiting evaluation. There is 2 mm of retrolisthesis of L1-2, of 02/01 L3 and L3-4. There is 2 mm of anterolisthesis of L4 on L5 . There is a mild right convex scoliosis centered at L5-S1 due to asymmetric left-sided disc-space height loss. There is a mild levo convexity of the lumbar spine centered at L2-3 with asymmetric ri ght-sided disc-space height loss. There are associated moderate discogenic endplate changes at L2-3 . There is diffuse desiccation of the intervertebral discs with moderate loss of disc-space height at L2-3 and L5-S1. Vertebral body heights are maintained. The baseline marrow signal is within nor mal limits. No definite focal signal abnormalities are seen. There are moderate degenerative reyes es of the interspinous articulations. There are multiple prominent cysts in the bilateral kidneys, incompletely evaluated due to motion artifacts, with suggestion of moderate prominence of the right renal collecting system. The conus medullaris is visible at the L1 level and appears grossly opal l. The lumbar nerve roots are normal in appearance. The paraspinal soft tissues are unremarkable. No significant paraspinal soft tissue swelling. T12-L1: There is a 1 mm annular disc bulge without significant indentation on the ventral thecal sa c. The thecal sac and lateral recesses are patent. There is mild bilateral facet spondylosis. The neural foramina are patent. L1-L2: There is a 3 mm annular disc bulge, with mild indentation on the ventral thecal sac. The th ecal sac measures 13 mm in midline AP diameter. There is mild narrowing of both lateral recesses. T here is moderate bilateral neural foraminal narrowing. There is mild to moderate bilateral facet artemio int hypertrophy with buckling of the ligamentum flavum. L2-L3: There is a 3-4 mm annular disc bulge asymmetric to the right far lateral region. The thecal sac is patent measuring 12 mm midline AP diameter. There is mild narrowing of both lateral recesse s. There is severe right and moderate left neural foraminal narrowing. L3-L4: There is a 3 mm annular disc bulge asymmetric to the left far lateral region. There is mild bilateral facet hypertrophy. The thecal sac and lateral recesses are patent. There is moderate le ft and mild right neural foraminal narrowing. L4-L5: There is severe facet spondylosis with buckling of the ligamentum flavum and reciprocal mold ing. There is subsequent grade 1 anterolisthesis of L4 on L5. There is unroofing of the disc, with superimposed 2 mm annular disc bulge. There is no significant narrowing of the central thecal sac, measuring 11 mm in midline AP diameter. There is moderate left and mild right lateral recess narro wing. There is severe bilateral neural foraminal narrowing. L5-S1: There is a 3-4 mm left foraminal/far lateral disc bulge. There is mild narrowing of the lef t lateral recess. The thecal sac and right lateral recess are patent. There is mild to moderate bi lateral facet spondylosis. There is severe left and moderate right neural foraminal narrowing. IMPRESSION: 1. Multilevel moderate to severe degenerative disc disease with associated S-shaped scoliosis as di scussed above. 2. 3-4 mm annular disc bulge asymmetric to the right far lateral region at L2-3 with subsequent sev ere right neural foraminal narrowing of both lateral recesses. No significant central stenosis. 3. 3-4 mm left foraminal/far lateral disc bulge at L5-S1 associated with scoliosis which results in severe left and moderate right neural foraminal narrowing. There is mild narrowing of the left lat eral recess. The thecal sac and right lateral recess are patent. 4. Severe facet spondylosis at L4-5 with grade 1 anterolisthesis and a subsequent moderate left and mild right lateral recess narrowing. 5. Multilevel facet spondylosis superimposed on S-shaped scoliosis which results in severe narrowin g of the right L2-3, bilateral L4-5 and left L5-S1 foramina. RPTAT: DD .Robin Neumann MD, MD Date Time Electronically viewed and signed by .Robin Neumann MD, on 08/30/2016 15:08 .S/
[2016-08-30] MEDS ORDERED: LIDOCAINE 1% (MDV) 20 ML INJ SC ONE (15:30)
[2016-08-30] MEDS ORDERED: VANCOMYCIN 1.5 GM in SOD CHLORIDE 0.9% 250 ML IVPB ONE (16:00)
--- NOTE | 2016-08-30 17:30 | RADRPT ---
PROCEDURE: XR Chest. CLINICAL INDICATION: Assess PICC line catheter placement. TECHNIQUE: Single frontal view of the chest was obtained COMPARISON: Chest x-ray 08/26/2016. FINDINGS: The PICC line catheter enters to the right arm with its tip in the superior vena cava. Is well posi tioned. The left ventricle is mildly enlarged. The lungs are clear. The left diaphragm is mildly elevated. No pleural effusion is noted. There are degenerative changes in the thoracic spine. IMPRESSION: 1. The PICC line catheter enters the right arm with its tip in the superior vena cava. 2. Atherosclerosis of the aortic arch. 3. No evidence of active cardiopulmonary disease allowing for a suboptimal inspiratory effort. No pneumothorax is identified. RPTAT:AAJJ Physician Chris Date Time Electronically viewed and signed by Physician Chris on 08/30/2016 17:30 MOO/
[2016-08-30] MEDS ORDERED: SOD CHLORIDE 0.9% 100 ML ONE (18:41)
[2016-08-30 19:00] VITALS: BP 150/68; RESP 18
[2016-08-30] MEDS: ATORVASTATIN 20 MG TAB PO SCH (20:30)
[2016-08-30] MEDS: LEVOFLOXACIN 750MG/D5W (PMX) 150 ML IVPB SCH (22:27)
[2016-08-31] MEDS: POTASSIUM CHLORIDE 40 MEQ in SOD CHLORIDE 0.9% 1,000 ML IV SCH ×2 (05:10→06:18)
[2016-08-31 06:48] LABS: BASOPHILS % 0.2 % (0.0-2.0); EOSINOPHILS # 0.1 10^3/ul (0.0-0.5); HEMATOCRIT 25.2 % (37.0-47.0); HEMOGLOBIN 8.5 g/dl (12.0-16.0); LYMPHOCYTES # 1.1 10^3/ul (0.8-2.9); LYMPHOCYTES % 8.9 % (15.0-51.0); MEAN CORPUSCULAR HEMOGLOBIN 29.4 pg (29.0-33.0); MEAN CORPUSCULAR HGB CONC 33.7 g/dl (32.0-37.0); MEAN CORPUSCULAR VOLUME 87.3 fl (82.0-101.0); MEAN PLATELET VOLUME 8.2 fl (7.4-10.4); MONOCYTE # 0.9 10^3/ul (0.3-0.9); MONOCYTES % 7.3 % (0.0-11.0); NEUTROPHIL # 9.8 10^3/ul (1.6-7.5); NEUTROPHILS % 82.6 % (39.0-77.0); PLATELET COUNT 248 10^3/UL (140-440); RED BLOOD COUNT 2.88 10^6/ul (4.20-5.40); RED CELL DISTRIBUTION WIDTH 16.3 % (11.5-14.5); UNCORRECTED WBC 11.9 10^3/ul (4.8-10.8); WHITE BLOOD COUNT 11.9 10^3/ul (4.8-10.8)
[2016-08-31 06:49] LABS: CONDITION 1; LH ANALYZER COMMENTS 1
[2016-08-31 07:00] LABS: POTASSIUM 4.4 mmol/L (3.5-5.1)
[2016-08-31 07:03] LABS: CREATININE 0.88 mg/dl (0.44-1.00)
[2016-08-31 07:51] VITALS: BP 131/65; RESP 16
--- NOTE | 2016-08-31 08:02 | RADRPT ---
PROCEDURE: Ultrasound proximal upper extremity for PICC placement CLINICAL INDICATION: PICC placement TECHNIQUE: Sonographic evaluation of the proximal right upper extremity vessels was performed utiliz ing a high-frequency linear transducer. COMPARISON: None available FINDINGS: Limited evaluation of the proximal upper extremity for vascular access for PICC placement. Grossly, no abnormality is seen. IMPRESSION: 1. Unremarkable limited proximal right upper extremity ultrasound for PICC placement. RPTAT: EE .Rashard Mas MD, MD Date Time Electronically viewed and signed by .Rashard Mas MD, MD on 08/31/2016 08:01 .R/
[2016-08-31] MEDS: FERROUS SULFATE (EC) 325 MG TAB PO SCH (08:37)
[2016-08-31] MEDS: FAMOTIDINE 20 MG TAB PO SCH (08:37)
[2016-08-31] MEDS: CALCITRIOL 0.25 MCG CAP PO SCH (08:37)
[2016-08-31] MEDS: NA BICARBONATE 650 MG TAB PO SCH (08:37)
--- NOTE | 2016-08-31 11:53 | PN ---
Date/Time of Note Date/Time of Note DATE: 08/31/16 TIME: 11:22 Assessment/Plan VTE Prophylaxis VTE Prophylaxis Intervention: SCD's Lines/Catheters IV Catheter Type (from Nrsg): PICC Line Central line still needed: Yes Urinary Cath still in place: Yes Reason Cath still needed: urinary retention Assessment/Plan Assessment/Plan 81-year-old female with: 1. Pseudomonas Aeruginosa Cystitis and bacteremia On Levaquin now based on sensitivities Repeat blood cx NGTD Afebrile and WBC up to 11K 2. 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 Murillo. ESR up to 130 S/p IR drainage of abscess 08/29 and cx with GNR and Melinda albicans On Levaquin and will discuss addition of Diflucan with ID 3. Coag neg staph blood cx 07/25 and repeat negative .. ? contaminant, will discuss with ID if Vanco needed 4. Hypertension: resuming Lisinopril since renal function back to normal D/c HTCZ and avoid use. 5. Acute kidney injury with reported chronic kidney disease, signs of obstructive uropathy with bilateral hydronephrosis on CT Agrawal catheter in place with good UOP and renal function actually back to normal now with Agrawal in place Patient reports that she is followed by Dr. Kelly for nephrology, apparently at [facility] based on the records her renal function was normal in June 2016. D/c IVF with K 6. LE weakness with known pelvic osteo and abscess. MRI L spine with no finding of abscess or osteo but Multilevel facet spondylosis superimposed on S-shaped scoliosis which results in severe narrowing of the right L2-3, bilateral L4-5 and left L5-S1 foramina Follow up further Neurology recommendations Prophylaxis: SCDs for DVT prophylaxis, Pepcid for GI prophylaxis and probiotics Disposition: On medical surgical and patient refusing SNF placement, she wants to go home but needs a lot of assistance PT eval for safety and plan for d/c home with HH once final Abx regimen available if patient still refusing to go to SNF. Subjective 24 Hr Interval Summary Free Text/Dictation Patient feels better and wants to go home not SNF PT eval pending and need to adjust abx regimen prior discharge home as WBC up and new organisms growing on abscess cx Exam/Review of Systems Vital Signs Vitals Vital Signs Date Time Temp Pulse Resp B/P Pulse Ox O2 Delivery O2 Flow Rate FiO2 08/31/16 07:51 98.0 62 16 131/65 97 08/29/16 16:35 Room Air 08/29/16 16:30 2.0 Intake and Output 08/30/16 08/30/16 08/31/16 15:00 23:00 07:00 Intake Total 2023 ml 1360 ml Output Total 600 ml 1330 ml Balance 1423 ml 30 ml Exam Constitutional: alert, frail, oriented Respiratory: clear to auscultation, normal air movement Cardiovascular: nl pulses, regular rate and rhythm Gastrointestinal: non-tender, soft Musculoskeletal: nl extremities to inspection Extremities: normal pulses, other (no edema, clubbing or cyanosis ) Neurological: PRISON GUARD SUPERVISOR II-XII intact, nl mental status, nl speech, other (b/l lower extremities weakness ) Results Result Diagram: 08/31/16 0540 08/31/16 0540 Results 24 hrs Laboratory Tests Test 08/31/16 05:40 Anion Gap 10 Basophils # 0.0 Basophils % 0.2 Blood Morphology Comment Blood Urea Nitrogen 22 H Calcium Level 8.0 L Carbon Dioxide Level 27 Chloride Level 105 Creatinine 0.88 Eosinophils # 0.1 Eosinophils % 1.0 Glucose Level 95 Hematocrit 25.2 L Hemoglobin 8.5 L Lymphocytes # 1.1 Lymphocytes % 8.9 L Mean Corpuscular Hemoglobin 29.4 Mean Corpuscular Hemoglobin Concent 33.7 Mean Corpuscular Volume 87.3 Mean Platelet Volume 8.2 Monocytes # 0.9 Monocytes % 7.3 Neutrophils # 9.8 H Neutrophils % 82.6 H Nucleated Red Blood Cells # 0.0 Nucleated Red Blood Cells % 0.0 Platelet Count 248 Potassium Level 4.4 Red Blood Count 2.88 L Red Cell Distribution Width 16.3 H Sodium Level 138 White Blood Count 11.9 H Medications Medications Current Medications Calcitriol (Rocaltrol) 0.25 mcg DAILY PO Last administered on 08/31/16 08:37; Admin Dose 0.25 MCG; Start 08/27/16 at 09:00 Ferrous Sulfate (Ferrous Sulfate (Ec)) 325 mg DAILY PO Last administered on 08/31 08:37; Admin Dose 325 MG; Start 08/27/16 at 09:00 Sodium Bicarbonate (Sodium Bicarbonate Tab) 325 mg BID PO Last administered on 08/31/16 08:37; Admin Dose 325 MG; Start 08/26/16 at 22:30 Atorvastatin Calcium (Lipitor) 20 mg QHS PO Last administered on 08/30/16 20:30 ; Admin Dose 20 MG; Start 08/26/16 at 21:00 Ondansetron HCl (Zofran Inj) 4 mg Q6H PRN IV NAUSEA AND/OR VOMITING Last administered on 08/27/16 09:33; Admin Dose 4 MG; Start 08/26/16 at 21:30 Acetaminophen (Tylenol Tab) 650 mg Q6H PRN PO PAIN LEVEL 1-3 OR FEVER; Start at 21:30 Acetaminophen/ Hydrocodone Bitart ([place] (5/325)) 1 tab Q6H PRN PO MODERATE PAIN LEVEL 4-6 Last administered on 08/27/16 20:18; Admin Dose 1 TAB; Start 08/26 at 21:30 Acetaminophen/ Hydrocodone Bitart ([place] (5/325)) 2 tab Q6H PRN PO SEVERE PAIN LEVEL 7-10; Start 08/26/16 at 21:30 Morphine Sulfate (morphine) 2 mg Q4H PRN IV SEVERE PAIN LEVEL 7-10 Last administered on 08/30/16 08:55; Admin Dose 2 MG; Start 08/26/16 at 21:30 Docusate Sodium (Colace) 100 mg Q12H PRN PO CONSTIPATION; Start 08/26/16 at 21: 30 Magnesium Hydroxide (Milk Of Mag) 30 ml DAILY PRN PO CONSTIPATION; Start at 21:30 Bisacodyl (Dulcolax Supp) 10 mg DAILY PRN [place] CONSTIPATION; Start 08/26/16 at 21: 30 Famotidine 20 mg 20 mg DAILY PO Last administered on 08/31/16 08:37; Admin Dose 20 MG; Start 08/27/16 at 09:00 Levofloxacin/ Dextrose 150 ml @ 100 mls/hr Q48H IVPB Last administered on 22:27; Admin Dose 100 MLS/HR; Start 08/28/16 at 22:00 Potassium Chloride 40 meq/ Sodium Chloride 1,020 ml @ 100 mls/hr [id number] IV Last administered on 08/31/16t 05:10; Admin Dose 100 MLS/HR; Start 08/29/16 at 13: 30 Vancomycin HCl/ Sodium Chloride (Vancocin/NS) 250 ml @ 83.333 mls/ hr Q24H IVPB ; Start 08/31/16 at 16:00 IV Flush (NS 10 ml) 10 ml PRN PRN IV IV PROTOCOL; Start 08/30/16 at 17:30 Procedures Procedures PROCEDURE: MRI Lumbar Spine without contrast. CLINICAL INDICATION: 81-year-old female with lumbar spine pain with bilateral lower extremity weakness. TECHNIQUE: An MRI of the lumbar spine was performed with multiple sequences in the sagittal and axial planes without contrast. Images reviewed on a high- resolution PACS system. COMPARISON: None available at the time of dictation. FINDINGS: There is diffuse artifact throughout the upper lumbar spine, slightly limiting evaluation. There is 2 mm of retrolisthesis of L1-2, of 02/01 L3 and L3-4. There is 2 mm of anterolisthesis of L4 on L5. There is a mild right convex scoliosis centered at L5-S1 due to asymmetric left-sided disc-space height loss. There is a mild levo convexity of the lumbar spine centered at L2-3 with asymmetric right-sided disc-space height loss. There are associated moderate discogenic endplate changes at L2-3. There is diffuse desiccation of the intervertebral discs with moderate loss of disc-space height at L2-3 and L5-S1. Vertebral body heights are maintained. The baseline marrow signal is within normal limits. No definite focal signal abnormalities are seen. There are moderate degenerative changes of the interspinous articulations. There are multiple prominent cysts in the bilateral kidneys, incompletely evaluated due to motion artifacts, with suggestion of moderate prominence of the right renal collecting system. The conus medullaris is visible at the L1 level and appears grossly normal. The lumbar nerve roots are normal in appearance. The paraspinal soft tissues are unremarkable. No significant paraspinal soft tissue swelling. T12-L1: There is a 1 mm annular disc bulge without significant indentation on the ventral thecal sac. The thecal sac and lateral recesses are patent. There is mild bilateral facet spondylosis. The neural foramina are patent. L1-L2: There is a 3 mm annular disc bulge, with mild indentation on the ventral thecal sac. The thecal sac measures 13 mm in midline AP diameter. There is mild narrowing of both lateral recesses. There is moderate bilateral neural foraminal narrowing. There is mild to moderate bilateral facet joint hypertrophy with buckling of the ligamentum flavum. L2-L3: There is a 3-4 mm annular disc bulge asymmetric to the right far lateral region. The thecal sac is patent measuring 12 mm midline AP diameter. There is mild narrowing of both lateral recesses. There is severe right and moderate left neural foraminal narrowing. L3-L4: There is a 3 mm annular disc bulge asymmetric to the left far lateral region. There is mild bilateral facet hypertrophy. The thecal sac and lateral recesses are patent. There is moderate left and mild right neural foraminal narrowing. L4-L5: There is severe facet spondylosis with buckling of the ligamentum flavum and reciprocal molding. There is subsequent grade 1 anterolisthesis of L4 on L5. There is unroofing of the disc, with superimposed 2 mm annular disc bulge. There is no significant narrowing of the central thecal sac, measuring 11 mm in midline AP diameter. There is moderate left and mild right lateral recess narrowing. There is severe bilateral neural foraminal narrowing. L5-S1: There is a 3-4 mm left foraminal/far lateral disc bulge. There is mild narrowing of the left lateral recess. The thecal sac and right lateral recess are patent. There is mild to moderate bilateral facet spondylosis. There is severe left and moderate right neural foraminal narrowing. IMPRESSION: 1. Multilevel moderate to severe degenerative disc disease with associated S- shaped scoliosis as discussed above. 2. 3-4 mm annular disc bulge asymmetric to the right far lateral region at L2- 3 with subsequent severe right neural foraminal narrowing of both lateral recesses. No significant central stenosis. 3. 3-4 mm left foraminal/far lateral disc bulge at L5-S1 associated with scoliosis which results in severe left and moderate right neural foraminal narrowing. There is mild narrowing of the left lateral recess. The thecal sac and right lateral recess are patent. 4. Severe facet spondylosis at L4-5 with grade 1 anterolisthesis and a subsequent moderate left and mild right lateral recess narrowing. 5. Multilevel facet spondylosis superimposed on S-shaped scoliosis which results in severe narrowing of the right L2-3, bilateral L4-5 and left L5-S1 foramina. RPTAT: DD .Robin Neumann MD, Date Time Electronically viewed and signed by .Robin Neumann MD, on 08/30/2016 15: 08 DAYANNA DEVLIN Aug 31, 2016 11:39
[2016-08-31] MEDS: LISINOPRIL 20 MG TAB PO SCH (13:13)
--- NOTE | 2016-08-31 16:00 | PN ---
DATE: 08/31/2016 SUBJECTIVE: No acute changes. The patient is lying comfortably in bed, no fevers. MICROBIOLOGY: Abdominal drainage culture growing gram-negative rods, Melinda albicans, no anaerobes . Blood culture on admission grew Pseudomonas coagulase-negative staph species. Urine culture also growing Pseudomonas. ANTIMICROBIALS: The patient is on: 1. Levaquin. 2. Vancomycin. 3. Flagyl was added this morning. INDWELLINGS: She has a left-sided abdominal drainage catheter. PHYSICAL EXAMINATION: GENERAL: This is a well-nourished, well-developed, fragile, elderly woman who is sleeping. The pat ient is in no distress. HEENT: Head atraumatic, normocephalic. Sclerae anicteric. Buccal mucosa dry. NECK: Supple. CHEST: Rise symmetrical. Breath sounds clear. HEART: S1, S2. ABDOMEN: Soft, bowel tones present. EXTREMITIES: Bilateral lower extremities dependent edema, right more than left. ASSESSMENT: 1. Systemic inflammatory response syndrome secondary to #2. 2. Pseudomonas aeruginosa, pyelonephritis. 3. Pelvic abscess status post drainage. 4. Osteomyelitis of the pubic symphysis as per MRI of the lumbar spine. 5. Polymicrobial bacteremia secondary to above. 6. Urinary retention status post placement of Agrawal catheter. PLAN: The patient remains stable. We will continue her on current antimicrobials. The patient nee ds PICC line and long-term IV antibiotics, actually IV vancomycin or daptomycin and oral Levaquin an d fluconazole. Neurology on case. Dictated By: BALAJI JOLLY AIRFRAME AND POWERPLANT TECHNICIAN for MATT CHAPMAN/SHREYA Conf#: [id number] DID#: [id number]
[2016-08-31] MEDS: VANCOMYCIN 1.25 GM in SOD CHLORIDE 0.9% 250 ML IVPB SCH (16:06)
[2016-08-31] MEDS: FLUCONAZOLE 100 MG TAB PO SCH (16:06)
[2016-08-31 19:59] VITALS: BP 135/61; RESP 16
--- NOTE | 2016-08-31 20:19 | CONS ---
Date/Time of Note Date/Time of Note DATE: 08/31/16 TIME: 20:14 Consult Date/Type/Reason Admit Date/Time Aug 26, 2016 at 18:43 Initial Consult Date 08/26/16 Type of Consultation: neurology Ordering Provider: DARIN RICE M.D. Subjective No acute events Objective Vital Signs Date Time Temp Pulse Resp B/P Pulse Ox O2 Delivery O2 Flow Rate FiO2 08/31/16 19:59 98.6 74 16 135/61 97 08/29/16 16:35 Room Air 08/29/16 16:30 2.0 Intake and Output 08/30/16 08/30/16 08/31/16 15:00 23:00 07:00 Intake Total 2023 ml 1360 ml Output Total 600 ml 1330 ml Balance 1423 ml 30 ml Results/Medications Result Diagram: 08/31/16 0540 08/31/16 0540 Results 24 hrs Laboratory Tests Test 08/31/16 05:40 Anion Gap 10 Basophils # 0.0 Basophils % 0.2 Blood Morphology Comment Blood Urea Nitrogen 22 H Calcium Level 8.0 L Carbon Dioxide Level 27 Chloride Level 105 Creatinine 0.88 Eosinophils # 0.1 Eosinophils % 1.0 Glucose Level 95 Hematocrit 25.2 L Hemoglobin 8.5 L Lymphocytes # 1.1 Lymphocytes % 8.9 L Mean Corpuscular Hemoglobin 29.4 Mean Corpuscular Hemoglobin Concent 33.7 Mean Corpuscular Volume 87.3 Mean Platelet Volume 8.2 Monocytes # 0.9 Monocytes % 7.3 Neutrophils # 9.8 H Neutrophils % 82.6 H Nucleated Red Blood Cells # 0.0 Nucleated Red Blood Cells % 0.0 Platelet Count 248 Potassium Level 4.4 Red Blood Count 2.88 L Red Cell Distribution Width 16.3 H Sodium Level 138 White Blood Count 11.9 H Medications Current Medications Calcitriol (Rocaltrol) 0.25 mcg DAILY PO Last administered on 08/31/16 08:37; Admin Dose 0.25 MCG; Start 08/27/16 at 09:00 Ferrous Sulfate (Ferrous Sulfate (Ec)) 325 mg DAILY PO Last administered on 08/31 08:37; Admin Dose 325 MG; Start 08/27/16 at 09:00 Atorvastatin Calcium (Lipitor) 20 mg QHS PO Last administered on 08/30/16 20:30 ; Admin Dose 20 MG; Start 08/26/16 at 21:00 Ondansetron HCl (Zofran Inj) 4 mg Q6H PRN IV NAUSEA AND/OR VOMITING Last administered on 08/27/16 09:33; Admin Dose 4 MG; Start 08/26/16 at 21:30 Acetaminophen (Tylenol Tab) 650 mg Q6H PRN PO PAIN LEVEL 1-3 OR FEVER; Start at 21:30 Acetaminophen/ Hydrocodone Bitart ([place] (5/325)) 1 tab Q6H PRN PO MODERATE PAIN LEVEL 4-6 Last administered on 08/27/16 20:18; Admin Dose 1 TAB; Start 08/26 at 21:30 Acetaminophen/ Hydrocodone Bitart ([place] (5/325)) 2 tab Q6H PRN PO SEVERE PAIN LEVEL 7-10; Start 08/26/16 at 21:30 Morphine Sulfate (morphine) 2 mg Q4H PRN IV SEVERE PAIN LEVEL 7-10 Last administered on 08/30/16 08:55; Admin Dose 2 MG; Start 08/26/16 at 21:30 Docusate Sodium (Colace) 100 mg Q12H PRN PO CONSTIPATION; Start 08/26/16 at 21: 30 Magnesium Hydroxide (Milk Of Mag) 30 ml DAILY PRN PO CONSTIPATION; Start at 21:30 Bisacodyl (Dulcolax Supp) 10 mg DAILY PRN [place] CONSTIPATION; Start 08/26/16 at 21: 30 Famotidine 20 mg 20 mg DAILY PO Last administered on 08/31/16 08:37; Admin Dose 20 MG; Start 08/27/16 at 09:00 Vancomycin HCl/ Sodium Chloride (Vancocin/NS) 250 ml @ 83.333 mls/ hr Q24H IVPB Last administered on 08/31/16 16:06; Admin Dose 83.333 MLS/HR; Start at 16:00 IV Flush (NS 10 ml) 10 ml PRN PRN IV IV PROTOCOL; Start 08/30/16 at 17:30 Lisinopril (Zestril) 20 mg DAILY PO Last administered on 08/31/16 13:13; Admin Dose 20 MG; Start 08/31/16 at 11:30 Fluconazole (Diflucan) 100 mg DAILY PO Last administered on 08/31/16t 16:06; Admin Dose 100 MG; Start 08/31/16 at 14:00 Levofloxacin (Levaquin) 750 mg QHS PO ; Start 08/31/16 at 21:00 Assessment/Plan Chief Complaint/Hosp Course PHYSICAL EXAMINATION: GENERAL: Not in acute distress, lying in bed. HEENT: Normocephalic, atraumatic head. NECK: No carotid bruits. No thyromegaly. LUNGS: Clear to auscultation bilaterally. CARDIAC: Normal cardiac rhythm and sounds. ABDOMEN: Soft. EXTREMITIES: No cyanosis, clubbing or edema. NEUROLOGIC: She is awake, alert and oriented x3 with fluent speech. Cranial nerve examination shows intact visual ochoa bilaterally. Pupils round, reactive to light from 3 to 2 mm bilaterally. Extraocular movements intact without nystagmus. Symmetrical face. Preserved facial strength and sensation. Tongue is in midline. Palate elevates symmetrically. Motor strength examination preserved in upper extremities. Lower extremities: Hip flexion, adduction of the hips, knee extension I would say 3/5. Stronger knee extension on the left, 3+/5. No movements across the ankles. Sensory examination: No sensation perceived up to the knee level in bilateral lower extremities and minimally diminished perception of pinprick in the fingertips. Coordination preserved on [id number] testing. No dysmetria or tremor. IMPRESSION: Chronic bilateral lower paraparesis, worse distally with foot drop , started on the right about 5 years ago, on the left about half a year ago. The patient has history of vaginal cancer in 1998, status post radiation. Etiology of the weakness and numbness could include lumbosacral polyradiculopathy, cauda equina, bilateral plexopathy. Severe DDD on multiple levels seen on MRI L-S spine, likely - mostly contributing to the weakness and numbness. Outpatient ortho spine evaluation could be reasonable, no need to do it now, as pt's symptoms are very long standing. Problems: ISMAEL LUIS MD Aug 31, 2016 20:19
[2016-08-31] MEDS: ATORVASTATIN 20 MG TAB PO SCH (21:03)
[2016-08-31] MEDS: LEVOFLOXACIN 750 MG TABLET PO SCH (21:03)
[2016-09-01] MEDS ORDERED: LEVOFLOXACIN 750 MG TABLET PO SCH (06:00)
[2016-09-01 07:01] LABS: MAGNESIUM 1.1 mg/dl (1.7-2.5); PHOSPHORUS 2.3 mg/dl (2.5-4.9)
[2016-09-01 07:12] LABS: POTASSIUM 4.3 mmol/L (3.5-5.1)
[2016-09-01 07:16] LABS: BASOPHILS % 0.1 % (0.0-2.0); CALCIUM 8.4 mg/dl (8.4-10.2); CREATININE 0.85 mg/dl (0.44-1.00); EOSINOPHILS % 1.4 % (0.0-7.0); HEMATOCRIT 25.7 % (37.0-47.0); LYMPHOCYTES # 1.5 10^3/ul (0.8-2.9); LYMPHOCYTES % 10.8 % (15.0-51.0); MEAN CORPUSCULAR HEMOGLOBIN 28.6 pg (29.0-33.0); MEAN CORPUSCULAR HGB CONC 31.1 g/dl (32.0-37.0); MEAN CORPUSCULAR VOLUME 91.8 fl (82.0-101.0); MEAN PLATELET VOLUME 10.5 fl (7.4-10.4); MONOCYTE # 0.9 10^3/ul (0.3-0.9); MONOCYTES % 6.1 % (0.0-11.0); NEUTROPHIL # 10.5 10^3/ul (1.6-7.5); NEUTROPHILS % 75.6 % (39.0-77.0); PLATELET COUNT 252 10^3/UL (140-440); RED CELL DISTRIBUTION WIDTH 15.4 % (11.5-14.5); WHITE BLOOD COUNT 13.9 10^3/ul (4.8-10.8)
[2016-09-01 07:31] VITALS: BP 140/65; RESP 16
[2016-09-01] MEDS: ONDANSETRON 4 MG INJ IV PRN (09:32)
[2016-09-01] MEDS: CALCITRIOL 0.25 MCG CAP PO SCH (09:35)
[2016-09-01] MEDS: FERROUS SULFATE (EC) 325 MG TAB PO SCH (09:35)
[2016-09-01] MEDS: FAMOTIDINE 20 MG TAB PO SCH (09:36)
[2016-09-01] MEDS: LISINOPRIL 20 MG TAB PO SCH ×2 (09:36→20:42)
[2016-09-01] MEDS: FLUCONAZOLE 100 MG TAB PO SCH (09:36)
--- NOTE | 2016-09-01 10:58 | PN ---
Date/Time of Note Date/Time of Note DATE: 09/01/16 TIME: 10:34 Assessment/Plan VTE Prophylaxis VTE Prophylaxis Intervention: SCD's Lines/Catheters IV Catheter Type (from Nrsg): PICC Line Central line still needed: Yes (for IV abx ) Urinary Cath still in place: Yes Reason Cath still needed: urinary retention Assessment/Plan Assessment/Plan 81-year-old female with: 1. Pseudomonas Aeruginosa Cystitis and bacteremia On Levaquin po now based on sensitivities Repeat blood cx NGTD Afebrile and WBC up to 13.9K 2. 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 Murillo. ESR up to 130 S/p IR drainage of abscess 08/[address] now and still with output Cultures with Pseudomonas and Melinda albicans On Levaquin and also Diflucan added Continue IV Vanco for now 3. Coag neg staph blood cx 07/25 and repeat negative .. On Vanco IV per ID. 4. Hypertension: Back on Lisinopril increased to BID D/c HTCZ and avoid use. 5. Acute kidney injury with reported chronic kidney disease, signs of obstructive uropathy with bilateral hydronephrosis on CT Agrawal catheter in place with good UOP and renal function actually back to normal now with Agrawal in place Patient reports that she is followed by Dr. Kelly for nephrology, apparently at [facility] based on the records her renal function was normal in June 2016. IVF prn only, need to keep Agrawal in place 6. LE weakness with known pelvic osteo and abscess. MRI L spine with no finding of abscess or osteo but Multilevel facet spondylosis superimposed on S-shaped scoliosis which results in severe narrowing of the right L2-3, bilateral L4-5 and left L5-S1 foramina Appreciate Neurology recommendations, ortho spine eval outpatient to be arranged later Prophylaxis: SCDs for DVT prophylaxis, Pepcid for GI prophylaxis and probiotics Disposition: On medical surgical and patient refusing SNF placement, she wants to go home but needs a lot of assistance PT eval for safety and plan for d/c home with HH once final Abx regimen available if patient still refusing to go to SNF, within 24 to 48 hrs hopefully. Subjective 24 Hr Interval Summary Free Text/Dictation Patient remains afebrile, Pelvic drain in place, with output 20cc so far this AM Nausea and vomiting this AM x 1 WBC up but clinically overall looks better Hb at 8, will repeat h/h and also re check ESR PT eval pending for d/c plan home within 24 to 48 hrs Exam/Review of Systems Vital Signs Vitals Vital Signs Date Time Temp Pulse Resp B/P Pulse Ox O2 Delivery O2 Flow Rate FiO2 09/01/16 07:31 98.4 66 16 140/65 96 08/29/16 16:35 Room Air 08/29/16 16:30 2.0 Intake and Output 08/31/16 08/31/16 09/01/16 15:00 23:00 07:00 Intake Total 1710 ml 400 ml Output Total 1000 ml 1000 ml Balance 710 ml -600 ml Exam Constitutional: alert, frail, oriented, other (pale) Respiratory: clear to auscultation, normal air movement Cardiovascular: nl pulses, regular rate and rhythm Gastrointestinal: non-tender, other (pelvic drain in place ), soft Musculoskeletal: nl extremities to inspection Extremities: normal pulses, other (no edema, clubbing or cyanosis ) Neurological: BALL POINTS INSPECTOR II-XII intact, nl mental status, nl speech, other ( generalised weakness ) Results Result Diagram: 09/01/1652609/01/16526 Results 24 hrs Laboratory Tests Test 09/01/16 05:27 Anion Gap 10 Basophils % 0.1 Blood Urea Nitrogen 18 Calcium Level 8.4 Carbon Dioxide Level 26 Chloride Level 105 Creatinine 0.85 Eosinophils % 1.4 Glucose Level 90 Hematocrit 25.7 L Hemoglobin 8.0 L Lymphocytes # 1.5 Lymphocytes % 10.8 L Magnesium Level 1.1 L Mean Corpuscular Hemoglobin 28.6 L Mean Corpuscular Hemoglobin Concent 31.1 L Mean Corpuscular Volume 91.8 Mean Platelet Volume 10.5 #H Monocytes # 0.9 Monocytes % 6.1 Neutrophils # 10.5 H Neutrophils % 75.6 Phosphorus Level 2.3 L Platelet Count 252 Potassium Level 4.3 Red Blood Count 2.80 L Red Cell Distribution Width 15.4 H Sodium Level 137 White Blood Count 13.9 H Medications Medications Current Medications Calcitriol (Rocaltrol) 0.25 mcg DAILY PO Last administered on 09/01/16t 09:35; Admin Dose 0.25 MCG; Start 08/27/16 at 09:00 Ferrous Sulfate (Ferrous Sulfate (Ec)) 325 mg DAILY PO Last administered on 09/01 09:35; Admin Dose 325 MG; Start 08/27/16 at 09:00 Atorvastatin Calcium (Lipitor) 20 mg QHS PO Last administered on 08/31/16 21:03 ; Admin Dose 20 MG; Start 08/26/16 at 21:00 Ondansetron HCl (Zofran Inj) 4 mg Q6H PRN IV NAUSEA AND/OR VOMITING Last administered on 09/01/16 09:32; Admin Dose 4 MG; Start 08/26/16 at 21:30 Acetaminophen (Tylenol Tab) 650 mg Q6H PRN PO PAIN LEVEL 1-3 OR FEVER; Start at 21:30 Acetaminophen/ Hydrocodone Bitart ([place] (5/325)) 1 tab Q6H PRN PO MODERATE PAIN LEVEL 4-6 Last administered on 08/27/16 20:18; Admin Dose 1 TAB; Start 08/26 at 21:30 Acetaminophen/ Hydrocodone Bitart ([place] (5/325)) 2 tab Q6H PRN PO SEVERE PAIN LEVEL 7-10; Start 08/26/16 at 21:30 Morphine Sulfate (morphine) 2 mg Q4H PRN IV SEVERE PAIN LEVEL 7-10 Last administered on 08/30/16 08:55; Admin Dose 2 MG; Start 08/26/16 at 21:30 Docusate Sodium (Colace) 100 mg Q12H PRN PO CONSTIPATION; Start 08/26/16 at 21: 30 Magnesium Hydroxide (Milk Of Mag) 30 ml DAILY PRN PO CONSTIPATION; Start at 21:30 Bisacodyl (Dulcolax Supp) 10 mg DAILY PRN [place] CONSTIPATION; Start 08/26/16 at 21: 30 Famotidine 20 mg 20 mg DAILY PO Last administered on 09/01/16 09:36; Admin Dose 20 MG; Start 08/27/16 at 09:00 Vancomycin HCl/ Sodium Chloride (Vancocin/NS) 250 ml @ 83.333 mls/ hr Q24H IVPB Last administered on 08/31/16 16:06; Admin Dose 83.333 MLS/HR; Start at 16:00 IV Flush (NS 10 ml) 10 ml PRN PRN IV IV PROTOCOL; Start 08/30/16 at 17:30 Lisinopril (Zestril) 20 mg DAILY PO Last administered on 09/01/16 09:36; Admin Dose 20 MG; Start 08/31/16 at 11:30 Fluconazole (Diflucan) 100 mg DAILY PO Last administered on 09/01/16 09:36; Admin Dose 100 MG; Start 08/31/16 at 14:00 Levofloxacin 750 mg 750 mg QHS PO Last administered on 08/31/16 21:03; Admin Dose 750 MG; Start 08/31/16 at 21:00 Magnesium Sulfate (Magnesium Sulfate 4 Gm/100 ml) 100 ml @ 25 mls/hr ONCE IVPB ; Start 09/01/16 at 12:00; Stop 09/01/16 at 15:59 DAYANNA DEVLIN Sep 01, 2016 10:47
[2016-09-01] MEDS ORDERED: MAGNESIUM SULFATE 4 GM/100 ML 100 ML IVPB SCH (12:00)
[2016-09-01 13:24] LABS: HEMATOCRIT 28.4 % (37.0-47.0); HEMOGLOBIN 8.7 g/dl (12.0-16.0)
[2016-09-01] MEDS ORDERED: SOD CHLORIDE 0.9% 250 ML IV* ONE (15:13)
--- NOTE | 2016-09-01 16:49 | PN ---
DATE: 09/01/2016 SUBJECTIVE: No acute changes. The patient is alert, feels very comfortable. No fevers. She is on IV vancomycin and oral Levaquin, also on oral fluconazole. LABORATORY DATA: WBC today 13.9, H and H 8.7 and 28.4, platelets 252, no shift. BUN 18, creatinine 0.85. MICROBIOLOGY: Blood culture on admission grew pseudomonas and coag-negative staph species. Intra-a bdominal abscess culture growing pseudomonas, Melinda albicans. INDWELLINGS: PICC line and a left-sided abdominal drainage catheter. PHYSICAL EXAMINATION: GENERAL: Obese, well-developed elderly woman who is alert, in no distress. HEENT: Head atraumatic, normocephalic. Sclerae anicteric. Buccal mucosa pink. NECK: Supple, trachea midline. CHEST: Rise symmetrical. Breath sounds clear. HEART: S1, S2. ABDOMEN: Soft, bowel sounds present. EXTREMITIES: Bilateral lower extremity dependent edema. ASSESSMENT: 1. Systemic inflammatory response syndrome secondary to #2 and 3. 2. Pelvic abscess, status post drainage. 3. Pseudomonas aeruginosa urinary tract infection with bacteremia. 4. 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 5. Urinary retention. 6. Hypertension. 7. Acute kidney injury. PLAN: The patient remains stable. Neurology on case. She is covered with appropriate antimicrobia ls which we will continue for 6 weeks, possibly longer for treatment of osteomyelitis. The patient will require a repeat MRI prior to discontinuation of therapy and she will require followup with rojelio jarvis as an outpatient. Dictated By: BALAJI JOLLY RESPIRATORY THERAPY DIRECTOR for MATT CHAPMAN/SHREYA Conf#: [id number] DID#: [id number]
[2016-09-01] MEDS: VANCOMYCIN 1.25 GM in SOD CHLORIDE 0.9% 250 ML IVPB SCH (17:00)
[2016-09-01 20:17] VITALS: BP 148/67; RESP 18
[2016-09-01] MEDS: ATORVASTATIN 20 MG TAB PO SCH (20:41)
[2016-09-01] MEDS: LEVOFLOXACIN 750 MG TABLET PO SCH (20:41)
[2016-09-02 06:18] LABS: ADD SCAN DIFF NO
[2016-09-02 06:20] LABS: ABNORMAL IP MESSAGE 1; BASOPHILS % 0.2 % (0.0-2.0); EOSINOPHILS # 0.3 10^3/ul (0.0-0.5); EOSINOPHILS % 1.8 % (0.0-7.0); HEMATOCRIT 28.8 % (37.0-47.0); LYMPHOCYTES # 1.7 10^3/ul (0.8-2.9); MEAN CORPUSCULAR HGB CONC 31.3 g/dl (32.0-37.0); MEAN CORPUSCULAR VOLUME 89.7 fl (82.0-101.0); MEAN PLATELET VOLUME 10.6 fl (7.4-10.4); MONOCYTE # 0.8 10^3/ul (0.3-0.9); MONOCYTES % 5.7 % (0.0-11.0); NEUTROPHIL # 10.1 10^3/ul (1.6-7.5); NEUTROPHILS % 73.5 % (39.0-77.0); PLATELET COUNT 249 10^3/UL (140-415); RED BLOOD COUNT 3.21 10^6/ul (4.20-5.40); RED CELL DISTRIBUTION WIDTH 16.4 % (11.5-14.5); WHITE BLOOD COUNT 13.7 10^3/ul (4.8-10.8)
[2016-09-02 06:50] LABS: MAGNESIUM 1.7 mg/dl (1.7-2.5); PHOSPHORUS 3.1 mg/dl (2.5-4.9)
[2016-09-02 06:54] LABS: POTASSIUM 3.7 mmol/L (3.5-5.1)
[2016-09-02 06:56] LABS: CREATININE 0.92 mg/dl (0.44-1.00)
[2016-09-02 06:57] LABS: CALCIUM 8.6 mg/dl (8.4-10.2)
[2016-09-02 08:12] VITALS: BP 134/64; RESP 18
[2016-09-02] MEDS ORDERED: POTASSIUM CHLORIDE (SR) 20 MEQ TAB PO STA (08:44)
[2016-09-02] MEDS ORDERED: MAGNESIUM SULFATE 2 GM/50 ML 50 ML IVPB ONE (09:00)
[2016-09-02] MEDS: CALCITRIOL 0.25 MCG CAP PO SCH (10:28)
[2016-09-02] MEDS: LISINOPRIL 20 MG TAB PO SCH (10:29)
[2016-09-02] MEDS: FERROUS SULFATE (EC) 325 MG TAB PO SCH (10:29)
[2016-09-02] MEDS: FLUCONAZOLE 100 MG TAB PO SCH (10:29)
[2016-09-02] MEDS: FAMOTIDINE 20 MG TAB PO SCH (10:30)
--- NOTE | 2016-09-02 11:56 | PN ---
Date/Time of Note Date/Time of Note DATE: 09/02/16 TIME: 11:25 Assessment/Plan VTE Prophylaxis VTE Prophylaxis Intervention: SCD's Lines/Catheters IV Catheter Type (from Nrsg): Peripheral IV Urinary Cath still in place: Yes Reason Cath still needed: urinary retention Assessment/Plan Assessment/Plan 81-year-old female with: 1. Pseudomonas Aeruginosa Cystitis and bacteremia On Levaquin po now based on sensitivities Repeat blood cx NGTD Afebrile and WBC trending back down slowly 2. 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 Murillo. ESR up to 130 S/p IR drainage of abscess 08/[address] now and still with output. Monitor drain output as outpatient and refer to [facility] surgery again and drain could be removed after evaluation there Cultures with Pseudomonas and Melinda albicans On Levaquin and also Diflucan added for 6 weeks course at least Continue IV Vanco for 6 weeks too. Repeat MRI pelvis 2 weeks prior to completion of abx to re-eval abcess and Osteomyelitis, F/u with Dr Murillo 3. Coag neg staph blood cx 07/25 and repeat negative .. On Vanco IV per ID. 4. Hypertension: Back on Lisinopril increased to BID D/c HTCZ and avoid use. 5. Acute kidney injury with reported chronic kidney disease, signs of obstructive uropathy with bilateral hydronephrosis on CT Agrawal catheter in place with good UOP and renal function actually back to normal now with Agrawal in place Patient reports that she is followed by Dr. Kelly for nephrology, apparently at [facility] based on the records her renal function was normal in June 2016. Need to keep Agrawal in place 6. LE weakness with known pelvic osteo and abscess. MRI L spine with no finding of abscess or osteo but Multilevel facet spondylosis superimposed on S-shaped scoliosis which results in severe narrowing of the right L2-3, bilateral L4-5 and left L5-S1 foramina Appreciate Neurology recommendations, ortho spine eval outpatient to be arranged later Prophylaxis: SCDs for DVT prophylaxis, Pepcid for GI prophylaxis and probiotics Disposition: On medical surgical and patient refusing SNF placement, she wants to go home but needs a lot of assistance PT eval for safety and plan for d/c home with HH today with abx x 6 weeks Also per ID, patient will need again repeat MRI pelvis prior to finishing 6 weeks course. Subjective 24 Hr Interval Summary Free Text/Dictation Patient doing oK and stable for discharge today per ID with 6 weeks of abx. She needs close follow up as outpatient by her ID physician Dr Murillo with outpatient repeat MRI pelvis in 4 weeks. All home health arrangements to be fulfilled through [facility] Exam/Review of Systems Vital Signs Vitals Vital Signs Date Time Temp Pulse Resp B/P Pulse Ox O2 Delivery O2 Flow Rate FiO2 09/02/16 08:12 98.6 70 18 134/64 98 08/29/16 16:35 Room Air 08/29/16 16:30 2.0 Intake and Output 09/01/16 09/01/16 09/02/16 15:00 23:00 07:00 Intake Total 1030 ml 1000 ml Output Total 20 ml 910 ml 2350 ml Balance -20 ml 120 ml -1350 ml Exam Constitutional: alert, frail, oriented Respiratory: clear to auscultation, normal air movement Cardiovascular: nl pulses, regular rate and rhythm Gastrointestinal: non-tender, other (pelvic drain ), soft Musculoskeletal: nl extremities to inspection Extremities: normal pulses Neurological: DRIVE IN WAITER/WAITRESS II-XII intact, nl mental status, nl speech, other ( generalised weakness unchanged ) Results Result Diagram: 09/02/1652409/02/16 0525 Results 24 hrs Laboratory Tests Test 09/01/16 13:12 09/02/16 05:25 Hematocrit 28.4 L 28.8 L Hemoglobin 8.7 L 9.0 L Anion Gap 9 Basophils # 0.0 Basophils % 0.2 Blood Urea Nitrogen 15 Calcium Level 8.6 Carbon Dioxide Level 28 Chloride Level 105 Creatinine 0.92 Eosinophils # 0.3 Eosinophils % 1.8 Glucose Level 84 Lymphocytes # 1.7 Lymphocytes % 12.0 L Magnesium Level 1.7 Mean Corpuscular Hemoglobin 28.0 L Mean Corpuscular Hemoglobin Concent 31.3 L Mean Corpuscular Volume 89.7 Mean Platelet Volume 10.6 H Monocytes # 0.8 Monocytes % 5.7 Neutrophils # 10.1 H Neutrophils % 73.5 Nucleated Red Blood Cells # 0.0 Nucleated Red Blood Cells % 0.0 Phosphorus Level 3.1 Platelet Count 249 Potassium Level 3.7 Red Blood Count 3.21 L Red Cell Distribution Width 16.4 H Sodium Level 138 White Blood Count 13.7 H Medications Medications Current Medications Calcitriol (Rocaltrol) 0.25 mcg DAILY PO Last administered on 09/02/16 10:28; Admin Dose 0.25 MCG; Start 08/27/16 at 09:00 Ferrous Sulfate (Ferrous Sulfate (Ec)) 325 mg DAILY PO Last administered on 10:29; Admin Dose 325 MG; Start 08/27/16 at 09:00 Atorvastatin Calcium (Lipitor) 20 mg QHS PO Last administered on 09/01/16 20:41 ; Admin Dose 20 MG; Start 08/26/16 at 21:00 Ondansetron HCl (Zofran Inj) 4 mg Q6H PRN IV NAUSEA AND/OR VOMITING Last administered on 09/01/16 09:32; Admin Dose 4 MG; Start 08/26/16 at 21:30 Acetaminophen (Tylenol Tab) 650 mg Q6H PRN PO PAIN LEVEL 1-3 OR FEVER; Start at 21:30 Acetaminophen/ Hydrocodone Bitart ([place] (5/325)) 1 tab Q6H PRN PO MODERATE PAIN LEVEL 4-6 Last administered on 08/27/16 20:18; Admin Dose 1 TAB; Start 08/26 at 21:30 Acetaminophen/ Hydrocodone Bitart ([place] (5/325)) 2 tab Q6H PRN PO SEVERE PAIN LEVEL 7-10 Last administered on 09/01/16 20:42; Admin Dose 2 TAB; Start 08/26/16 at 21:30 Morphine Sulfate (morphine) 2 mg Q4H PRN IV SEVERE PAIN LEVEL 7-10 Last administered on 08/30/16 08:55; Admin Dose 2 MG; Start 08/26/16 at 21:30 Docusate Sodium (Colace) 100 mg Q12H PRN PO CONSTIPATION; Start 08/26/16 at 21: 30 Magnesium Hydroxide (Milk Of Mag) 30 ml DAILY PRN PO CONSTIPATION; Start at 21:30 Bisacodyl (Dulcolax Supp) 10 mg DAILY PRN [place] CONSTIPATION; Start 08/26/16 at 21: 30 Famotidine 20 mg 20 mg DAILY PO Last administered on 09/02/16 10:30; Admin Dose 20 MG; Start 08/27/16 at 09:00 Vancomycin HCl/ Sodium Chloride (Vancocin/NS) 250 ml @ 83.333 mls/ hr Q24H IVPB Last administered on 09/01/16 17:00; Admin Dose 83.333 MLS/HR; Start at 16:00 IV Flush (NS 10 ml) 10 ml PRN PRN IV IV PROTOCOL; Start 08/30/16 at 17:30 Fluconazole (Diflucan) 100 mg DAILY PO Last administered on 09/02/16 10:29; Admin Dose 100 MG; Start 08/31/16 at 14:00 Levofloxacin (Levaquin) 750 mg QHS PO Last administered on 09/01/16 20:41; Admin Dose 750 MG; Start 08/31/16 at 21:00 Lisinopril (Zestril) 20 mg BID PO Last administered on 09/02/16 10:29; Admin Dose 20 MG; Start 09/01/16 at 21:00 Miscellaneous Information (*Rx Drug Level Order Reminder*) VANCO TROUGH @ 1, 500 ON... ONCE ONCE XX ; Start 09/02/16 at 15:00; Stop 09/02/16 at 15:01 DAYANNA DEVLIN Sep 02, 2016 11:35
--- NOTE | 2016-09-02 12:00 | PDOCDIS ---
Discharge Instructions CONDITION Patient Condition: Stable HOME CARE INSTRUCTIONS: Diet Instructions: Regular ACTIVITY: Activity Restrictions: Slowly Increase Activity No Weight Bearing FOLLOW UP/APPOINTMENTS Appointments Follow up with PCP within 2 weeks Follow up with Dr Murillo, primary ID physician within 1 to 2 weeks Needs repeat MRI Pelvis to follow up pelvic abscess and osteomyelitis in 4 weeks Follow with Home Health PT, OT, RN DAYANNA DEVLIN Sep 02, 2016 12:00
[2016-09-02] MEDS ORDERED: LACT1CAP47 PO (12:06)
[2016-09-02] MEDS ORDERED: LISI20TA11 PO (12:06)
[2016-09-02] MEDS ORDERED: VANC1FRO2 IV (12:06)
[2016-09-02] MEDS ORDERED: LEVO750T25 PO (12:06)
[2016-09-02] MEDS ORDERED: HYDR-3498 PO (12:06)
[2016-09-02] MEDS ORDERED: FLUC100T PO (12:06)
--- NOTE | 2016-09-02 12:40 | PN ---
DATE: 09/02/2016 SUBJECTIVE: No acute changes. The patient is awake, looks comfortable, no fevers. Vital signs sta ble. LABORATORY: WBC 13.7, no shift, no bands. BUN 15, creatinine 0.92. ANTIMICROBIALS: 1. Fluconazole. 2. Vancomycin. 3. Levaquin. PHYSICAL EXAMINATION: GENERAL: This is a well-developed, well-nourished elderly woman who is awake, in no distress. HEENT: Head atraumatic, normocephalic. Sclerae anicteric. Buccal mucosa dry. NECK: Supple. CHEST: Rise symmetrical. Breath sounds clear. HEART: S1, S2. ABDOMEN: Soft, bowel tones present. EXTREMITIES: Without cyanosis. Bilateral lower extremities dependent edema. ASSESSMENT: 1. Systemic inflammatory response syndrome with leukocytosis secondary to below. 2. Status post pelvic abscess drainage. 3. Pseudomonas aeruginosa urinary tract infection with bacteremia. 4. Osteomyelitis of the pubic symphysis, as per MRI. 5. Hypertension. 6. Urinary retention, status post Agrawal catheter. PLAN: The patient remains stable, covered with appropriate antimicrobials. Repeat blood cultures n egative. Pending discharge planning. On long-term antibiotics with repeat MRI prior to discontinua tion of therapy and recommendations of surgeon follows that. Dictated By: BALAJI JOLLY MOTORCYCLE MECHANIC for MATT CHAPMAN/SHREYA Conf#: [id number] DID#: [id number]
[2016-09-02] MEDS ORDERED: VANCOMYCIN 1 GM in NS 250 ML IVPB SCH (17:00)
[2016-09-02 18:30] VITALS: BP 147/78; PULSE 63; RESP 18
== END 2016-09-02 18:35 | disposition home health service (06) | DRG 854 ==
LOC: E/R 12:18 → MS2 18:43
PROVIDERS: ADMIT Internal Medicine; ATTEND Internal Medicine
PROC: 0W9J3ZX Drainage of Pelvic Cavity, Percutaneous Approach, Diagnostic (ICD-10-PCS; principal; 2016-08-29)
PROC: 02HV33Z Insertion of Infusion Device into Superior Vena Cava, Percutaneous Approach (ICD-10-PCS; 2016-08-30)
PROC: 30233N1 Transfusion of Nonautologous Red Blood Cells into Peripheral Vein, Percutaneous Approach (ICD-10-PCS; 2016-09-01)
DX: A41.52 Sepsis due to Pseudomonas (principal); N17.9 Acute kidney failure, unspecified; B37.89 Other sites of candidiasis; N13.30 Unspecified hydronephrosis; M86.18 Other acute osteomyelitis, other site; N10 Acute pyelonephritis; D64.9 Anemia, unspecified; A41.1 Sepsis due to other specified staphylococcus; R65.20 Severe sepsis without septic shock; E87.6 Hypokalemia; I12.9 Hypertensive chronic kidney disease with stage 1 through stage 4 chronic kidney disease, or unspecified chronic kidney disease; N18.9 Chronic kidney disease, unspecified; R32 Unspecified urinary incontinence; N30.90 Cystitis, unspecified without hematuria; Z85.44 Personal history of malignant neoplasm of other female genital organs; M21.372 Foot drop, left foot; M21.371 Foot drop, right foot; B96.5 Pseudomonas (aeruginosa) (mallei) (pseudomallei) as the cause of diseases classified elsewhere; R33.9 Retention of urine, unspecified; N73.8 Other specified female pelvic inflammatory diseases; M51.36 Other intervertebral disc degeneration, lumbar region
CPT/HCPCS: 36415; 36430; 36569; 71010; 72148; 72195; 74176; 76937; 77012; 80048; 80053; 80202; 81001; 81003; 83605; 83735; 84100; 84484; 85014; 85018; 85025; 85610; 85651; 85730; 86850; 86900; 86901; 86920; 87040; 87070; 87075; 87086; 93005; 96365; 96366; 96367; 96375; 96376; 97162; J1956; J2250; J2270; J2405; J3010; J3370; J3475; J3480; J7030; J7040; J7050; P9016